=== PATIENT | male | born 1955 | race African-American/Black ===

== ENCOUNTER 2018-07-23 20:43 | Inpatient (IN) | payer MEDICAID ==
[~2018-07-23] VITALS: Ht 185.4 cm; Wt 97.0 kg
[2018-07-23] MEDS ORDERED: LOTENSIN40 MG PO (20:47)
[2018-07-23] MEDS ORDERED: HUMALOG MIX 75/23 ML (20:47)
[2018-07-23] MEDS ORDERED: MAXZIDE 75/501 TAB PO (20:47)
--- NOTE | 2018-07-23 21:28 | NUR ---
NAY CARE PROVIDED TO PT, CLEAN BRIEF, GOWN AND BED LINENS CHANGED. PT TOLERATED WELL.
[2018-07-23 22:06] LABS: APPEARANCE CLEAR (CLEAR); BILIRUBIN NEGATIVE (NEGATIVE); COLOR YELLOW (YELLOW); GLUCOSE NEGATIVE (NEGATIVE); KETONE NEGATIVE (NEGATIVE); NITRITE NEGATIVE (NEGATIVE); PROTEIN NEGATIVE (NEGATIVE); SPECIFIC GRAVITY 1.015 (1.005-1.020); UROBILINOGEN NORMAL (NORMAL)
[2018-07-23 22:07] LABS: BACTERIA FEW /hpf (NONE SEEN); RED CELLS - URINE 0-5 /hpf (0-5); WHITE CELLS - URINE 0-5 /hpf (0-5)
[2018-07-23 22:11] LABS: UDS - AMPHET NEGATIVE QUAL (NEGATIVE); UDS - BARB NEGATIVE QUAL (NEGATIVE); UDS - BENZO NEGATIVE QUAL (NEGATIVE); UDS - COCAINE NEGATIVE QUAL (NEGATIVE); UDS - OPIATE NEGATIVE QUAL (NEGATIVE); UDS - PCP NEGATIVE QUAL (NEGATIVE); UDS - THC NEGATIVE QUAL (NEGATIVE)
--- NOTE | 2018-07-23 22:14 | NUR ---
PT GIVEN A URINAL.
[2018-07-24] VITALS (7 sets, daily range): BP systolic 88–131; BP diastolic 60–77; Ht 185.4 cm; Wt 97.0 kg
--- NOTE | 2018-07-24 00:32 | NUR ---
JONES PLACEMENT ORDERED FOR RETENTION PLACED A 16F JONES. URINE RETURN WITH PINK URINE DUE TO INSERT. PT OUT PUT APPROX 500 CLAMPED JONES. RELEASED AGAIN AFTER 10 MINS ANOTHER 400 CLAMPED AGAIN. WILL ACCURATE MEASURE ONCE DONE DRAINING BLADDER. PT DRANK A SPRITE DIET 240ML AND IS DRINKING ANOTHER. PT HAS NAUSEA. ZOFRAN GIVEN. ORDER OBTAINED FROM ER DR MARADIAGA. 4MG ZOFRAN GIVEN TO RIGHT HAND 20G PIV. PT IS AAO X2 HAS DIFFICULTY WITH RESPONSES. HISTORY OF CVA LEFT SIDE. PT NOW WATCHING TV DENIES ANY NEEDS. NO S/S OF DISTRESS. WILL CPOC
--- NOTE | 2018-07-24 00:51 | NUR ---
TOTAL OUTPUT AFTER JONES PLACEMENT 1270
[2018-07-24 05:43] LABS: BASOPHILS 0.1 % (0-2); EOSINOPHILS 0.4 % (0-7); HEMATOCRIT 35.4 % (42.0-54.0); HEMOGLOBIN 11.9 g/dL (13.5-17.5); IMMATURE GRANULOCYTES 0.4 % (0-5); LYMPHOCYTES 11.8 % (15-50); MCH 33.3 pg (26.0-34.0); MCHC 33.6 g/dL (31.0-37.0); MCV 99.2 fL (80.0-100.0); MEAN PLATELET VOLUME 9.7 fL (7.4-10.4); MONOCYTES 6.7 % (2-11); NEUTROPHILS 80.6 % (40-80); PLATELET COUNT 165 10x3/uL (130-400); RBC 3.57 10x6/uL (4.20-6.10); RDW 14.8 % (11.5-14.5); WBC 16.5 10x3/uL (4.8-10.8)
[2018-07-24 06:12] LABS: ALBUMIN 3.1 g/dL (3.4-5.0); BILIRUBIN - TOTAL 0.62 mg/dL (0.2-1.3); CALCIUM 9.2 mg/dL (8.5-10.1); CARBON DIOXIDE 17.2 mmol/L (21.0-32.0); CREATININE - SERUM 5.5 mg/dL (0.6-1.3); POTASSIUM - SERUM 4.2 mmol/L (3.5-5.1); PROTEIN - SERUM 7.4 g/dL (6.4-8.2)
--- NOTE | 2018-07-24 06:23 | NUR ---
GLUCOSE THIS MORNING IS 117 NO INSULIN NEEDED PER SLIDING SCALE. PT WILL CALL FOR ASSIST WHEN NEEDED. WILL CPOC
--- NOTE | 2018-07-24 06:35 | NUR ---
ATTEMPTED TO OBTAIN PHARMACY PT STATED SIMEON HENDRIX WILL LOOK UP AND ATTEMPT TO FIND PHARMACY IN THAT AREA CALLED THAT. PT NS INFUSING AT 125 TO RIGHT HAND. PT STATED "I GUESS SO" ON THE 3 MEDICATIONS ON THE LIST. UNKNOWN WHAT MEDICATIONS PT TAKES. UNABLE TO VOICE HISTORY. WILL ATTEMPT TO OBTAIN HISTORY FROM THE TRANSFER PAPER IF ABLE. PT WILL CALL FOR ASSIST WILL CPOC
--- NOTE | 2018-07-24 08:15 | NUR ---
PT LYING IN BED. GENERATING PLANT SUPERINTENDENT DRAWING BLOOD. TRIED SPEAKING WITH PT AND HE JUST LOOKED AT ME AND WOULD NOT RESPOND. WILL CONTINUE WITH PLAN OF CARE. BED LOW. CL IN REACH.
--- NOTE | 2018-07-24 08:39 | NUR ---
PT TAKEN FOR CT SCAN VIA BED.
[2018-07-24 09:06] LABS: COMPLEMENT C4 21.1 mg/dL (17.4-52.2)
--- NOTE | 2018-07-24 09:48 | NUR ---
I have reviewed this patient and I concur with the Shift Assessment completed by the Licensed Practical Nurse today this shift.
--- NOTE | 2018-07-24 10:40 | NUR ---
PT WILL TALK BUT VERY SHORT SENTENCES OR WILL ONLY SAY ONE WORD.
[2018-07-24 10:47] LABS: APPEARANCE TURBID (CLEAR); BILIRUBIN NEGATIVE (NEGATIVE); COLOR RED (YELLOW); GLUCOSE NEGATIVE (NEGATIVE); KETONE NEGATIVE (NEGATIVE); NITRITE NEGATIVE (NEGATIVE); PROTEIN 3+ mg/dL (NEGATIVE); SPECIFIC GRAVITY 1.015 (1.005-1.020); UDS - AMPHET NEGATIVE QUAL (NEGATIVE); UDS - BARB NEGATIVE QUAL (NEGATIVE); UDS - BENZO NEGATIVE QUAL (NEGATIVE); UDS - COCAINE NEGATIVE QUAL (NEGATIVE); UDS - OPIATE NEGATIVE QUAL (NEGATIVE); UDS - PCP NEGATIVE QUAL (NEGATIVE); UDS - THC NEGATIVE QUAL (NEGATIVE); UROBILINOGEN NORMAL (NORMAL)
[2018-07-24 10:49] LABS: CREATININE - URINE 50.1 mg/dL (30-125)
[2018-07-24 10:51] LABS: BACTERIA FEW /hpf (NONE SEEN); EPITHELIAL CELLS 0-5 /hpf (0-5); RED CELLS - URINE >50 /hpf (0-5)
[2018-07-24 11:01] LABS: ERYTHROCYTE SEDIMENTATION RATE 35 mm/hr (0-20)
[2018-07-24 11:20] LABS: PRO/CRE RATIO URINE 22.6 mg/g; PROTEIN - URINE 1130.9 mg/dL (0.0-11.9)
[2018-07-24] MEDS ORDERED: LEVOTHYROXINE100 MCG PO (14:04)
--- NOTE | 2018-07-24 15:24 | NUR ---
PT'S SISTER MONIE CALLED TO CHECK ON PT AND STATES SHE LIVES IN [place] BUT SHE IS THE ONE WHO NEEDS TO BE NOTIFIED. MONIE TANJA [phone].
--- NOTE | 2018-07-24 19:22 | NUR ---
PT ASLEEP, RESP EVEN AND UNLABORED. NS INFUSING AT 125 TO RIGHT HAND ORDERED. JONES NOTED WITH BLOODY URINE. NAME AND DATE PLACED ON BOARD. PT WILL CALL FOR ASSIST WHEN NEEDED. WILL CPOC
--- NOTE | 2018-07-24 21:00 | NUR ---
PT FSBS IS 119 NO INSULIN NEEDED. SNACK PROVIDED. PT DENIES ANY NEEDS. WILL NOT COMMUNITCATE. ONLY SPEAKS AT TIMES. PT APPEARS TO BE AAO, UNKNOWN OF ACTUAL ORIENTATION. PT SPEAKS IN SHORT NOAH OF WORDS. HISTORY OF CVA, RIGHT SIDED WEAKNESS. JONES HAS BLOODY URINE NOTED. NO S/S OF DISTRESS. DENIES ANY NEEDS. NS INFUSING AT 125 TO RIGHT HAND. WILL CPOC
[2018-07-25 04:00] VITALS: BP 100/74
--- NOTE | 2018-07-25 06:34 | NUR ---
NOURISHMENT GIVEN. NS INFUSING AT 125 ORDERED. PT DENIES ANY NEEDS. WILL CPOC
[2018-07-25 09:24] VITALS: BP 104/65
[2018-07-25 10:16] LABS: ANION GAP 16.4 mmol/L (8-16); CALCIUM 7.9 mg/dL (8.5-10.1)
[2018-07-25 10:22] LABS: CREATININE - SERUM 3.6 mg/dL (0.6-1.3); POTASSIUM - SERUM 3.4 mmol/L (3.5-5.1)
[2018-07-25 12:16] LABS: HEPATITIS C ANTIBODY <0.1 (0.0-0.9)
[2018-07-25 12:32] VITALS: BP 104/69
[2018-07-25 13:15] LABS: ANA REFLEX - DIRECT Negative (Negative)
--- NOTE | 2018-07-25 13:22 | NUR ---
I have reviewed this patient and I concur with the Shift Assessment completed by the Licensed Practical Nurse today this shift.
[2018-07-25 16:05] VITALS: BP 124/70
[2018-07-25 16:10] LABS: UPE RAND - ALBUMIN 51.2 % (()); UPE RAND - ALPHA 1 GLOBULIN 3.6 % (()); UPE RAND - ALPHA 2 GLOBULIN 9.8 % (()); UPE RAND - BETA GLOBULIN 20.4 % (())
[2018-07-25 17:09] LABS: SPE - A/G RATIO 0.9 (0.7-1.7); SPE - ALBUMIN 3.3 g/dL (2.9-4.4); SPE - ALPHA-1 GLOBULIN 0.2 g/dL (0.0-0.4); SPE - ALPHA-2 GLOBULIN 0.6 g/dL (0.4-1.0); SPE - BETA GLOBULIN 1.1 g/dL (0.7-1.3); SPE - GAMMA GLOBULIN 1.6 g/dL (0.4-1.8); SPE - M-SPIKE Not Observed g/dL (Not Observed); SPE - TOTAL PROTEIN 6.9 g/dL (6.0-8.5)
--- NOTE | 2018-07-25 19:22 | NUR ---
PT ASLEEP. AROUSES TO NURSE WALKING INTO ROOM. NAME AND DATE PLACED ON BOARD. PT DENIES ANY NEEDS. NOURISHMENT PROVIDED. PT HAS NS INFUSING 125 ORDERED. PT BEDLOW AND CALL LIGHT IN REACH. NAME AND DATE PLACED ON BOARD. PT WILL CALL FOR ASSIST WHEN NEEDED. WILL CPOC
[2018-07-25 20:00] VITALS: BP 111/73
[2018-07-25 23:56] VITALS: BP 113/77
[2018-07-26 00:16] VITALS: BP 105/74
[2018-07-26 04:25] VITALS: BP 118/67
[2018-07-26 04:57] LABS: BASOPHILS 0.2 % (0-2); EOSINOPHILS 2.4 % (0-7); HEMATOCRIT 30.9 % (42.0-54.0); HEMOGLOBIN 10.2 g/dL (13.5-17.5); IMMATURE GRANULOCYTES 0.4 % (0-5); LYMPHOCYTES 14.3 % (15-50); MCH 32.6 pg (26.0-34.0); MCV 98.7 fL (80.0-100.0); MEAN PLATELET VOLUME 9.9 fL (7.4-10.4); MONOCYTES 9.5 % (2-11); NEUTROPHILS 73.2 % (40-80); PLATELET COUNT 178 10x3/uL (130-400); RBC 3.13 10x6/uL (4.20-6.10); RDW 14.7 % (11.5-14.5); WBC 14.7 10x3/uL (4.8-10.8)
[2018-07-26 05:30] LABS: ANION GAP 17.6 mmol/L (8-16); CALCIUM 7.8 mg/dL (8.5-10.1); CARBON DIOXIDE 20.7 mmol/L (21.0-32.0); CREATININE - SERUM 2.7 mg/dL (0.6-1.3); POTASSIUM - SERUM 3.3 mmol/L (3.5-5.1)
--- NOTE | 2018-07-26 06:21 | NUR ---
PT INCONT A MODERATE AMOUNT OF STOOL. CLEANED AND REPOSITIONED. NS INFUSING AT 125 TO RIGHT HAND. PT FSBS IS 123 NO INSULIN NEEDED. PT DENIES ANY NEEDS. WILL CPOC
[2018-07-26 07:49] VITALS: BP 111/75
[2018-07-26 12:16] VITALS: BP 109/69
--- NOTE | 2018-07-26 14:05 | NUR ---
I have reviewed this patient and I concur with the Shift Assessment completed by the Licensed Practical Nurse today this shift.
[2018-07-26 15:38] VITALS: BP 119/73
--- NOTE | 2018-07-26 18:46 | NUR ---
LYING QUIETLY. NO NEEDS VOICED. WILL MONITOR
--- NOTE | 2018-07-26 19:43 | NUR ---
RECEIVED REPORT, WILL ASSUME CARE OF PT, ASKING FOR FOOD, PROVIDE A SANDWICH AND A DRINK, BED IS LOW, SRX2, CALL LIGHT IN REACH, WILL CONTINUE PLAN OF CARE
[2018-07-27] VITALS: BP 115/76
--- NOTE | 2018-07-27 02:01 | NUR ---
I have reviewed this patient and I concur with the Shift Assessment completed by the Licensed Practical Nurse today this shift.
--- NOTE | 2018-07-27 02:03 | NUR ---
COLLECT UA, GAVE TO SUPPORT MANAGER
[2018-07-27 02:27] LABS: APPEARANCE CLOUDY (CLEAR); BILIRUBIN NEGATIVE (NEGATIVE); COLOR STRAW (YELLOW); GLUCOSE NEGATIVE (NEGATIVE); KETONE NEGATIVE (NEGATIVE); NITRITE NEGATIVE (NEGATIVE); PROTEIN 1+ mg/dL (NEGATIVE); UROBILINOGEN NORMAL (NORMAL)
[2018-07-27 02:28] LABS: BACTERIA FEW /hpf (NONE SEEN); EPITHELIAL CELLS RARE /hpf (0-5); RED CELLS - URINE >50 /hpf (0-5); WHITE CELLS - URINE 0-5 /hpf (0-5)
[2018-07-27 04:00] VITALS: BP 121/79
[2018-07-27 04:58] LABS: BASOPHILS 0.3 % (0-2); EOSINOPHILS 3.3 % (0-7); HEMATOCRIT 29.8 % (42.0-54.0); HEMOGLOBIN 10.1 g/dL (13.5-17.5); IMMATURE GRANULOCYTES 0.5 % (0-5); LYMPHOCYTES 18.8 % (15-50); MCH 33.2 pg (26.0-34.0); MCHC 33.9 g/dL (31.0-37.0); MEAN PLATELET VOLUME 11.4 fL (7.4-10.4); MONOCYTES 8.8 % (2-11); NEUTROPHILS 68.3 % (40-80); PLATELET COUNT 167 10x3/uL (130-400); RBC 3.04 10x6/uL (4.20-6.10); RDW 14.8 % (11.5-14.5); WBC 15.3 10x3/uL (4.8-10.8)
--- NOTE | 2018-07-27 05:11 | NUR ---
PT PULL IV OUT, IVAN RN RESITED 22G-RFA
--- NOTE | 2018-07-27 07:45 | NUR ---
ASSESSMENT COMPLETED. AWAKE AND ALERT. PT HAS EXPRESIVE APHASIA. NO TELEMERTY. JONES CATH TO GRAVITY BAG, PATENT IV TO RIGHT FOREARM. NO NEEDS NOTED. CALL LIGHT IN REACH WITH SR UP
[2018-07-27 08:20] VITALS: BP 120/75
[2018-07-27 12:10] VITALS: BP 126/72
--- NOTE | 2018-07-27 14:42 | NUR ---
I have reviewed this patient and I concur with the Shift Assessment completed by the Licensed Practical Nurse today this shift.
[2018-07-27 14:52] VITALS: BP 132/68
--- NOTE | 2018-07-27 19:20 | NUR ---
RECEIVED REPORT, WILL ASSUME CARE OF PT, PT IS SLEEPING, BED IS LOW, SRX2, CALL LIGHT IN REACH, WILL CONTINUE PLAN OF CARE
[2018-07-27 20:30] VITALS: BP 90/60
[2018-07-28 00:54] VITALS: BP 96/60
[2018-07-28 05:41] VITALS: BP 114/78
[2018-07-28 06:48] LABS: BASOPHILS 0.2 % (0-2); EOSINOPHILS 3.1 % (0-7); HEMATOCRIT 29.6 % (42.0-54.0); HEMOGLOBIN 9.7 g/dL (13.5-17.5); IMMATURE GRANULOCYTES 0.5 % (0-5); MCH 32.8 pg (26.0-34.0); MCHC 32.8 g/dL (31.0-37.0); MEAN PLATELET VOLUME 9.7 fL (7.4-10.4); MONOCYTES 8.6 % (2-11); NEUTROPHILS 71.6 % (40-80); PLATELET COUNT 198 10x3/uL (130-400); RBC 2.96 10x6/uL (4.20-6.10); RDW 14.6 % (11.5-14.5); WBC 15.6 10x3/uL (4.8-10.8)
[2018-07-28 07:07] LABS: ANION GAP 15.7 mmol/L (8-16); CARBON DIOXIDE 19.8 mmol/L (21.0-32.0); CREATININE - SERUM 1.9 mg/dL (0.6-1.3); PHOSPHOROUS 1.7 mg/dL (2.5-4.9); POTASSIUM - SERUM 3.5 mmol/L (3.5-5.1)
[2018-07-28 07:18] LABS: CALCIUM 6.9 mg/dL (8.5-10.1)
[2018-07-28 08:18] VITALS: BP 117/80
[2018-07-28 09:08] LABS: ANTI-GLOMERULAR BASMENT MEMBRN 3 units (0-20)
--- NOTE | 2018-07-28 09:38 | NUR ---
ASSESSMENT DONE. DENIES NEEDS
--- NOTE | 2018-07-28 10:39 | NUR ---
I have reviewed this patient and I concur with the Shift Assessment completed by the Licensed Practical Nurse today this shift.
[2018-07-28 13:08] VITALS: BP 105/71
--- NOTE | 2018-07-28 19:30 | NUR ---
RECEIVED REPORT, WILL ASSUME CARE OF PT, DENIES ANY NEEDS AT THIS TIME, BED IS LOW, SRX2, CALL LIGHT IN REACH, WILL CONTINUE PLAN OF CARE
--- NOTE | 2018-07-28 21:00 | NUR ---
[id number] COVERAGE NEEDED AT THIS TIME
[2018-07-28 21:33] VITALS: BP 96/58
[2018-07-29] VITALS (7 sets, daily range): BP systolic 103–110; BP diastolic 61–70
[2018-07-29 05:25] LABS: BASOPHILS 0.3 % (0-2); EOSINOPHILS 2.8 % (0-7); HEMATOCRIT 29.2 % (42.0-54.0); HEMOGLOBIN 9.2 g/dL (13.5-17.5); IMMATURE GRANULOCYTES 0.5 % (0-5); LYMPHOCYTES 19.1 % (15-50); MCH 32.1 pg (26.0-34.0); MCHC 31.5 g/dL (31.0-37.0); MCV 101.7 fL (80.0-100.0); MEAN PLATELET VOLUME 9.4 fL (7.4-10.4); MONOCYTES 8.6 % (2-11); NEUTROPHILS 68.7 % (40-80); PLATELET COUNT 230 10x3/uL (130-400); RBC 2.87 10x6/uL (4.20-6.10); RDW 14.7 % (11.5-14.5); WBC 14.8 10x3/uL (4.8-10.8)
--- NOTE | 2018-07-29 05:28 | NUR ---
I have reviewed this patient and I concur with the Shift Assessment completed by the Licensed Practical Nurse today this shift.
[2018-07-29 06:07] LABS: CARBON DIOXIDE 21.7 mmol/L (21.0-32.0); CREATININE - SERUM 1.9 mg/dL (0.6-1.3); POTASSIUM - SERUM 3.6 mmol/L (3.5-5.1)
[2018-07-29 06:53] LABS: ANION GAP 12.9 mmol/L (8-16)
[2018-07-29 06:54] LABS: CALCIUM 6.6 mg/dL (8.5-10.1)
--- NOTE | 2018-07-29 11:18 | NUR ---
24 HOUR URINE COLLECTED AND SENT TO THE LAB.
[2018-07-29 12:39] LABS: CREATININE - URINE 37.9 mg/dL (30-125); PRO/CRE RATIO URINE 2.9 mg/g; PROTEIN - URINE 109.9 mg/dL (0.0-11.9)
--- NOTE | 2018-07-29 12:53 | NUR ---
Nutrition follow up: Pt is sleeping now Renal ADA diet with 61% average po intake Last BM noted 07/26 BG 150,101 today Weight 213lb-informed nursing of weight increased Noted possible d/c tomorrow RD following
--- NOTE | 2018-07-29 13:47 | NUR ---
I have reviewed this patient and I concur with the Shift Assessment completed by the Licensed Practical Nurse today this shift.
[2018-07-29 17:10] LABS: ANCA - ANTIMYELOPEROXIDASE <9.0 U/mL (0.0-9.0); ANCA - ANTIPROTEINASE 3 <3.5 U/mL (0.0-3.5); ANCA - ATYPICAL <1:20 titer (Neg:<1:20); ANCA - CYTOPLASMIC <1:20 titer (Neg:<1:20); ANCA - PERINUCLEAR <1:20 titer (Neg:<1:20)
--- NOTE | 2018-07-29 19:20 | NUR ---
PT ASLEEP. WILL CPOC
--- NOTE | 2018-07-29 20:19 | NUR ---
PT RESTING IN BED. NAME AND DATE PLACED ON BOARD. PT ASKED FOR A SANDWICH AND A DIET COKE. PT RECEIVED. NS WITH KCL RUNNING ORDERED TO RIGHT ARM. PT WILL CALL FOR ASSIST WHEN NEEDED. WILL CPOC
--- NOTE | 2018-07-30 02:20 | NUR ---
PT RECEIVED A BEDBATH AND JONES CARE. NO S/S OF DISTRESS. BEDLOW AND CALL LIGHT IN REACH. WILL CPOC
[2018-07-30 04:31] VITALS: BP 114/64
[2018-07-30 06:55] LABS: BASOPHILS 0.2 % (0-2); EOSINOPHILS 2.3 % (0-7); HEMATOCRIT 29.4 % (42.0-54.0); HEMOGLOBIN 9.4 g/dL (13.5-17.5); IMMATURE GRANULOCYTES 0.3 % (0-5); LYMPHOCYTES 20.6 % (15-50); MCH 32.2 pg (26.0-34.0); MCV 100.7 fL (80.0-100.0); MEAN PLATELET VOLUME 9.4 fL (7.4-10.4); NEUTROPHILS 67.6 % (40-80); PLATELET COUNT 225 10x3/uL (130-400); RBC 2.92 10x6/uL (4.20-6.10); RDW 14.9 % (11.5-14.5)
[2018-07-30 07:24] LABS: CARBON DIOXIDE 19.4 mmol/L (21.0-32.0); PHOSPHOROUS 2.2 mg/dL (2.5-4.9); POTASSIUM - SERUM 3.4 mmol/L (3.5-5.1)
[2018-07-30 07:52] LABS: CREATININE - SERUM 1.4 mg/dL (0.6-1.3)
[2018-07-30 07:53] LABS: CALCIUM 6.2 mg/dL (8.5-10.1)
[2018-07-30] MEDS ORDERED: LEVOFLOXACIN500 MG PO (07:54)
[2018-07-30 09:45] VITALS: BP 105/74
--- NOTE | 2018-07-30 12:00 | NUR ---
CALLED PTS SISTER AND SHE STATES SHE WILL CALL PTS SON TO COME GRAB HIM FOR TRANSPORTATION. PT VOICED THANKS. NO CURRENT NEEDS. WILL CTM.
--- NOTE | 2018-07-30 15:00 | NUR ---
D/C PTS R.FA PIV WITH CATHETER TIP FULLY INTACT. D/C JONES CATHETER WITH TIP FULLY INTACT. WILL MONITER FOR ANY RETENTION. DISCHARGE TEACHING PROVIDED AND PT VERBALIZED UNDERSTANDING HOWEVER IS VERY AGITATED AND WILL NOT SIGN HIS PAPERS HE ATTEMPTED WITH HIS L.ARM AND THREW HIS PENCIL. WILL REVIEW WITH FAMILY WHEN THEY COME TO PICK HIM UP FOR TRANSPORTATION. NO CURRENT NEEDS AT THIS TIME. WILL CTM.
--- NOTE | 2018-07-30 16:56 | MORECARE ---
CASE MANAGEMENT DISCHARGE SUMMARY PATIENT: SHIRA PUENTES UNIT: [id number] ADM DATE: 07/23/18 AGE: 62 : 59 SEX: M ROOM/BED: D.2124 AUTHOR: AMBERLYDOC PHYSICIAN: REFERRING PHYSICIAN: KAVON PRASAD MD DATE OF SERVICE: 07/30/18 Discharge Plan Patient Name: SHIRA PUENTES Facility: [facility]:[place] : 1955 Planned Disposition: Home Anticipated Discharge Date: 07/30/18 Discharge Date: Expected LOS: 7 Initial Reviewer: [email or web address] Initial Review Date: 07/30/2018 Generated: 07/30/18 5:56 pm Comments DCP- Discharge Planning Updated by [id number]: Dewey Gilman on 07/30/18 3:[address] Patient Name: SHIRA PUENTES Encounter No: [id number] : 1955 Primary Insurance: MEDICAID [place] Anticipated DC Date: 07-30-2018 Planned Disposition: Home DISCHARGE PLANNING NOTE: CM MET WITH PT IN ROOM TO DISCUSS DISCHARGE PLANNING AND NEEDS. PT REPORTS LIVING AT HOME INDEPENDENTLY WITH HIS BROTHER. PT HAS A CANE WITH NO MEDICAL EQUIPMENT PROVIDER AND NO OUTSIDE SERVICES ASSISTING IN THE HOME. CM DISCUSSED AVAILABILITY OF HOME HEALTH, REHAB SERVICES AND MEDICAL EQUIPMENT. PT DENIES DISCHARGE NEEDS, REPORTS HIS FAMILY IS ON THE WAY AND WILL PICK HIM UP FOR DISCHARGE HOME TODAY. CM CALLED [facility] AND [facility] IN [place], PT IS NOT ACTIVE WITH ANY OF THEM. PT ALSO DENIES HAVING OUTPATIENT DIALYSIS SERVICES. Dewey Gilman, GUERRERO ACOSTA DCPIA - Discharge Planning Initial Assessment Updated by [id number]: Dewey Gilman on 07/30/18 4:51 pm * Is the patient Alert and Oriented? Yes * How many steps to enter\exit or inside your home? NONE * PCP DR. PLAZA * Pharmacy [facility] * Preadmission Environment Home with Family * ADLs Independent * Equipment Cane * Other Equipment NO MEDICAL EQUIPMENT PROVIDER PREFERENCE * List name and contact numbers for known caregivers / representatives who currently or will assist patient after discharge: MONIE AGRAWAL, SISTER, * Verbal permission to speak to the caregivers and representatives has been obtained from the patient. N/A * Community resources currently utilized None * Please name any agencies selected above. NONE * Additional services required to return to the preadmission environment? No * Can the patient safely return to the preadmission environment? Yes * Has this patient been hospitalized within the prior 30 days at any hospital? No Patient Name: SHIRA PUENTES Page [id number] at 1656 All edits/amendments must be made on the electronic document DICTATION DATE: 07/30/181655 CHARGE RN: OSEI 07/30/181655 RPT#: [id number] DC DATE: STATUS: ADM IN [facility] [address] [place] [address] END OF REPORT
--- NOTE | 2018-07-30 18:41 | NUR ---
ATTEMPTED TO CALL SISTER THE EMERGENCY CONTACT AGAIN AND NO ANSWER. NOTIFIED WASH OIL PUMP OPERATOR OF ISSUE. WILL CTM.
--- NOTE | 2018-07-30 19:00 | NUR ---
REPORT RECEIVED. DISCHARGE COMPLETE JUST WAITING ON FAMILY. SISTER MONIE CALLED AND STATED BROTHER IS ON HIS WAY FROM [place]. REPORTED TO PT. PT INCONT A LARGE AMOUNT OF BM, WILL CPOC
--- NOTE | 2018-07-30 21:58 | NUR ---
WAITING ON FAMILY. PT REFUSED TO HAVE FSBS THIS EVENING. PT RESTING IN BED. NO S/S OF DISTRESS. GOT PT INTO CHAIR AND CLEANED UP. CHANGED BREIF. X2 ASSIST BACK TO BED. PT WILL CALL FOR ASSIST WHEN NEEDED. WILL CPOC
[2018-07-31] VITALS: BP 112/83
--- NOTE | 2018-07-31 00:16 | NUR ---
CALLED MONIE THE SISTER REGARDING THE BROTHER STILL NOT ARRIVING. SHE STATED SHE WAS UNDER THE UNDERSTANDING THAT THE BROTHER HAD CAME AND THEY WHERE HOME. MONIE STATED SHE WILL CALL THE DAUGHTER FIRST THING THIS MORNING AND IF THE DAUGHTER IS UNABLE TO COME THAN MONIE STATED SHE WILL COME GET HIM HER SELF
[2018-07-31 05:47] VITALS: BP 109/69
--- NOTE | 2018-07-31 07:27 | NUR ---
PT REFUSES FSBS. WAITING FOR FAMILY TO ARRIVE.
--- NOTE | 2018-07-31 07:45 | NUR ---
ROUNDING DONE WITH PATIENT LAYING ON RIGHT SIDE, AROUSES EASILY. PATIENT DENIES NEEDS AT THIS TIME. AWAITING FAMILY FOR RIDE HOME. WILL MONITOR. PASSING FLATUS. HAS DEPENDS ON.
--- NOTE | 2018-07-31 07:55 | MORECARE ---
CASE MANAGEMENT DISCHARGE SUMMARY PATIENT: SHIRA PUENTES UNIT: [id number] ADM DATE: 07/23/18 AGE: 62 : 59 SEX: M ROOM/BED: D.2124 AUTHOR: AMBERLYDOC PHYSICIAN: REFERRING PHYSICIAN: KAVON PRASAD MD DATE OF SERVICE: 07/31/18 Discharge Plan Patient Name: SHIRA PUENTES Facility: [facility]:[place] : 1955 Planned Disposition: Home Anticipated Discharge Date: 07/30/18 Discharge Date: Expected LOS: 7 Initial Reviewer: [email or web address] Initial Review Date: 07/30/2018 Generated: 07/31/18 8:55 am Comments DCP- Discharge Planning Updated by [email or web address]: Dewey Gilman on 07/30/18 3:[address] Patient Name: SHIRA PUENTES Encounter No: [id number] : 1955 Primary Insurance: MEDICAID [place] Anticipated DC Date: 07-30-2018 Planned Disposition: Home DISCHARGE PLANNING NOTE: CM MET WITH PT IN ROOM TO DISCUSS DISCHARGE PLANNING AND NEEDS. PT REPORTS LIVING AT HOME INDEPENDENTLY WITH HIS BROTHER. PT HAS A CANE WITH NO MEDICAL EQUIPMENT PROVIDER AND NO OUTSIDE SERVICES ASSISTING IN THE HOME. CM DISCUSSED AVAILABILITY OF HOME HEALTH, REHAB SERVICES AND MEDICAL EQUIPMENT. PT DENIES DISCHARGE NEEDS, REPORTS HIS FAMILY IS ON THE WAY AND WILL PICK HIM UP FOR DISCHARGE HOME TODAY. CM CALLED [facility] AND [facility] IN [place], PT IS NOT ACTIVE WITH ANY OF THEM. PT ALSO DENIES HAVING OUTPATIENT DIALYSIS SERVICES. Dewey Gilman, CASE KARLA DCPIA - Discharge Planning Initial Assessment Updated by [email or web address]: Dewey Gilman on 07/30/18 4:51 pm * Is the patient Alert and Oriented? Yes * How many steps to enter\exit or inside your home? NONE * PCP DR. PLAZA * Pharmacy [facility] * Preadmission Environment Home with Family * ADLs Independent * Equipment Cane * Other Equipment NO MEDICAL EQUIPMENT PROVIDER PREFERENCE * List name and contact numbers for known caregivers / representatives who currently or will assist patient after discharge: MONIE AGRAWAL, SISTER, * Verbal permission to speak to the caregivers and representatives has been obtained from the patient. N/A * Community resources currently utilized None * Please name any agencies selected above. NONE * Additional services required to return to the preadmission environment? No * Can the patient safely return to the preadmission environment? Yes * Has this patient been hospitalized within the prior 30 days at any hospital? No Last DP export: 07/30/18 3:56 p Patient Name: SHIRA PUENTES Page [id number] at 0755 All edits/amendments must be made on the electronic document DICTATION DATE: 07/31/18753 TRANSPORTATION PROGRAM DIRECTOR: DM 07/31/18 0754 RPT#: [id number] DC DATE: STATUS: ADM IN [facility] [address] [place] [address] END OF REPORT
--- NOTE | 2018-07-31 08:03 | MORECARE ---
CASE MANAGEMENT DISCHARGE SUMMARY PATIENT: SHIRA PUENTES UNIT: [id number] ADM DATE: 07/23/18 AGE: 62 : 59 SEX: M ROOM/BED: D.9944 AUTHOR: AMBERLY,DOC PHYSICIAN: REFERRING PHYSICIAN: KAVON PRASAD MD DATE OF SERVICE: 07/31/18 Discharge Plan Patient Name: SHIRA PUENTES Facility: [facility]:[place] : 1955 Planned Disposition: Home Anticipated Discharge Date: 07/30/18 Discharge Date: Expected LOS: 7 Initial Reviewer: [email or web address] Initial Review Date: 07/30/2018 Generated: 07/31/18 9:03 am Comments DCP- Discharge Planning Updated by [email or web address]: Dewey Gilman on 07/31/18 6:[address] Patient Name: SHIRA PUENTES Encounter No: [id number] : 1955 Primary Insurance: MEDICAID [place] Anticipated DC Date: 07-30-2018 Planned Disposition: Home DCP follow-up note: CM WAS INFORMED BY NURSE THAT FAMILY DID NOT DEPARTMENT STORE MANAGER PT LAST EVENING THEY SAID THEY WOULD. CM CALLED PT'S SISTER, MONIE AGRAWAL, , LEFT MESSAGE ASKING FOR RETURN CALL. CM WAITING ON FAMILY TO CALL CM. CM TO WORK ON TRANSPORTATION ISSUE SOON POSSIBLE TODAY. Dewey Gilman CASE KARLA DCP- Discharge Planning Updated by [email or web address]: Dewey Gilman on 07/30/18 3:[address] Patient Name: SHIRA PUENTES Encounter No: [id number] : 1955 Primary Insurance: MEDICAID [place] Anticipated DC Date: 07-30-2018 Planned Disposition: Home DISCHARGE PLANNING NOTE: CM MET WITH PT IN ROOM TO DISCUSS DISCHARGE PLANNING AND NEEDS. PT REPORTS LIVING AT HOME INDEPENDENTLY WITH HIS BROTHER. PT HAS A CANE WITH NO MEDICAL EQUIPMENT PROVIDER AND NO OUTSIDE SERVICES ASSISTING IN THE HOME. CM DISCUSSED AVAILABILITY OF HOME HEALTH, REHAB SERVICES AND MEDICAL EQUIPMENT. PT DENIES DISCHARGE NEEDS, REPORTS HIS FAMILY IS ON THE WAY AND WILL PICK HIM UP FOR DISCHARGE HOME TODAY. CM CALLED [facility] AND [facility] IN [place], PT IS NOT ACTIVE WITH ANY OF THEM. PT ALSO DENIES HAVING OUTPATIENT DIALYSIS SERVICES. Dewey Gilman, CASE MANAGEMENT DCPIA - Discharge Planning Initial Assessment Updated by [email or web address]: Dewey Gilman on 07/30/18 4:51 pm * Is the patient Alert and Oriented? Yes * How many steps to enter\exit or inside your home? NONE * PCP DR. PLAZA * Pharmacy [facility] * Preadmission Environment Home with Family * ADLs Independent * Equipment Cane * Other Equipment NO MEDICAL EQUIPMENT PROVIDER PREFERENCE * List name and contact numbers for known caregivers / representatives who currently or will assist patient after discharge: MONIE AGRAWAL, SISTER, * Verbal permission to speak to the caregivers and representatives has been obtained from the patient. N/A * Community resources currently utilized None * Please name any agencies selected above. NONE * Additional services required to return to the preadmission environment? No * Can the patient safely return to the preadmission environment? Yes * Has this patient been hospitalized within the prior 30 days at any hospital? No Last DP export: 07/31/18 6:55 a Patient Name: SHIRA PUENTES Page [id number] at 0803 All edits/amendments must be made on the electronic document DICTATION DATE: 07/31/18801 SOILED LINEN DISTRIBUTOR: OSEI 07/31/18801 RPT#: [id number] DC DATE: STATUS: ADM IN [facility] [address] [place] [address] END OF REPORT
--- NOTE | 2018-07-31 09:40 | MORECARE ---
CASE MANAGEMENT DISCHARGE SUMMARY PATIENT: SHIRA PUENTES UNIT: [id number] ADM DATE: 07/23/18 AGE: 62 : 59 SEX: M ROOM/BED: D.4354 AUTHOR: AMBERLY,DOC PHYSICIAN: REFERRING PHYSICIAN: KAVON PRASAD MD DATE OF SERVICE: 07/31/18 Discharge Plan Patient Name: SHIRA PUENTES Facility: [facility]:[place] : 1955 Planned Disposition: Home Anticipated Discharge Date: 07/31/18 Discharge Date: Expected LOS: 8 Initial Reviewer: [email or web address] Initial Review Date: 07/30/2018 Generated: 07/31/18 10:40 am Comments DCP- Discharge Planning Updated by [email or web address]: Dewey Gilman on 07/31/18 6:[address] Patient Name: SHIRA PUENTES Encounter No: [id number] : 1955 Primary Insurance: MEDICAID [place] Anticipated DC Date: 07-30-2018 Planned Disposition: Home DCP follow-up note: CM WAS INFORMED BY NURSE THAT FAMILY DID NOT OUTPATIENT SERVICES DIRECTOR PT LAST EVENING THEY SAID THEY WOULD. CM CALLED PT'S SISTER, MONIE AGRAWAL, , LEFT MESSAGE ASKING FOR RETURN CALL. CM WAITING ON FAMILY TO CALL CM. CM TO WORK ON TRANSPORTATION ISSUE SOON POSSIBLE TODAY. Dewey iGlman CASE KARLA DCP- Discharge Planning Updated by [id number]: Dewey Gilman on 07/30/18 3:[address] Patient Name: SHIRA PUENTES Encounter No: [id number] : 1955 Primary Insurance: MEDICAID [place] Anticipated DC Date: 07-30-2018 Planned Disposition: Home DISCHARGE PLANNING NOTE: CM MET WITH PT IN ROOM TO DISCUSS DISCHARGE PLANNING AND NEEDS. PT REPORTS LIVING AT HOME INDEPENDENTLY WITH HIS BROTHER. PT HAS A CANE WITH NO MEDICAL EQUIPMENT PROVIDER AND NO OUTSIDE SERVICES ASSISTING IN THE HOME. CM DISCUSSED AVAILABILITY OF HOME HEALTH, REHAB SERVICES AND MEDICAL EQUIPMENT. PT DENIES DISCHARGE NEEDS, REPORTS HIS FAMILY IS ON THE WAY AND WILL PICK HIM UP FOR DISCHARGE HOME TODAY. CM CALLED [facility] AND [facility] IN [place], PT IS NOT ACTIVE WITH ANY OF THEM. PT ALSO DENIES HAVING OUTPATIENT DIALYSIS SERVICES. Dewey Gilman, CASE MANAGEMENT DCPIA - Discharge Planning Initial Assessment Updated by [email or web address]: Dewey Gilman on 07/30/18 4:51 pm * Is the patient Alert and Oriented? Yes * How many steps to enter\exit or inside your home? NONE * PCP DR. PLAZA * Pharmacy [facility] * Preadmission Environment Home with Family * ADLs Independent * Equipment Cane * Other Equipment NO MEDICAL EQUIPMENT PROVIDER PREFERENCE * List name and contact numbers for known caregivers / representatives who currently or will assist patient after discharge: MONIE AGRAWAL, SISTER, * Verbal permission to speak to the caregivers and representatives has been obtained from the patient. N/A * Community resources currently utilized None * Please name any agencies selected above. NONE * Additional services required to return to the preadmission environment? No * Can the patient safely return to the preadmission environment? Yes * Has this patient been hospitalized within the prior 30 days at any hospital? No Last DP export: 07/31/18 7:03 a Patient Name: SHIRA PUENTES Page [phone] Electronically Signed by [facility] [place] on 07/31/18 at 0940 All edits/amendments must be made on the electronic document DICTATION DATE: 07/31/18939 MEAT SPECIALIST: OSEI 07/31/18939 RPT#: [id number] DC DATE: STATUS: ADM IN [facility] [address] [place] [address] END OF REPORT
--- NOTE | 2018-07-31 09:49 | MORECARE ---
CASE MANAGEMENT DISCHARGE SUMMARY PATIENT: SHIRA PUENTES UNIT: [id number] ADM DATE: 07/23/18 AGE: 62 : 59 SEX: M ROOM/BED: D.2124 AUTHOR: AMBERLY,DOC PHYSICIAN: REFERRING PHYSICIAN: KAVON PRASAD MD DATE OF SERVICE: 07/31/18 Discharge Plan Patient Name: SHIRA PUENTES Facility: [facility]:[place] : 1955 Planned Disposition: Home Anticipated Discharge Date: 07/31/18 Discharge Date: Expected LOS: 8 Initial Reviewer: [email or web address] Initial Review Date: 07/30/2018 Generated: 07/31/18 10:48 am Comments DCP- Discharge Planning Updated by [id number]: Dewey Moise on 07/31/18 8:[address] Patient Name: SHIRA PUENTES Encounter No: [id number] : 1955 Primary Insurance: MEDICAID [place] Anticipated DC Date: 07-30-2018 Planned Disposition: Home DCP follow-up note: CM WAS INFORMED BY NURSE THAT FAMILY DID NOT SALES REPRESENTATIVES PT LAST EVENING THEY SAID THEY WOULD. CM CALLED PT'S SISTER, MONIE AGRAWAL, , LEFT MESSAGE ASKING FOR RETURN CALL. CM WAITING ON FAMILY TO CALL CM. CM TO WORK ON TRANSPORTATION ISSUE SOON POSSIBLE TODAY. Dewey Moise, CASE MANAGEMENT Appended by Dewey Moise on 07/31/2018 9:43 CDT: CM SPOKE TO PT'S SISTER, MONIE, WHO ASKED CM TO CALL MEDICA[employer] TRANSPORT AND IF NO ONE WILL SALES REPRESENTATIVES PT, SHE WILL PICK HIM UP AFTER 3:30PM TODAY. CM SPOKE TO PT AND OBTAINED SOCIAL SECURITY NUMBER IT WAS NOT IN REGISTRATION INFORMATION. CM CALLED [employer]ICA[employer] TRANSPORT, , SPOKE TO IRINA AND ARRANGED SALES REPRESENTATIVES AFTER 1000AM THIS ANIKA, CONFIRMATION #[id number]. PT, PT'S SISTER, SOLUTION DESIGNER NURSE AND BEDSIDE NURSE NOTIFIED. MEDICAID BUS TO CALL NURSES STATION WHEN AT FRONT ENTRANCE TO SALES REPRESENTATIVES PT TODAY. DEWEY MOISE, CASE MANAGEMENT DCP- Discharge Planning Updated by [id number]: Dewey Moise on 07/30/18 3:[address] Patient Name: SHIRA PUENTES Encounter No: [id number] : 1955 Primary Insurance: MEDICAID [facility] DC Date: 07-30-2018 Planned Disposition: Home DISCHARGE PLANNING NOTE: CM MET WITH PT IN ROOM TO DISCUSS DISCHARGE PLANNING AND NEEDS. PT REPORTS LIVING AT HOME INDEPENDENTLY WITH HIS BROTHER. PT HAS A CANE WITH NO MEDICAL EQUIPMENT PROVIDER AND NO OUTSIDE SERVICES ASSISTING IN THE HOME. CM DISCUSSED AVAILABILITY OF HOME HEALTH, REHAB SERVICES AND MEDICAL EQUIPMENT. PT DENIES DISCHARGE NEEDS, REPORTS HIS FAMILY IS ON THE WAY AND WILL PICK HIM UP FOR DISCHARGE HOME TODAY. CM CALLED [facility] AND [facility] IN [place], PT IS NOT ACTIVE WITH ANY OF THEM. PT ALSO DENIES HAVING OUTPATIENT DIALYSIS SERVICES. Dewey Moise, CASE MANAGEMENT DCPIA - Discharge Planning Initial Assessment Updated by [id number]: Dewey Moise on 07/30/18 4:51 pm * Is the patient Alert and Oriented? Yes * How many steps to enter\exit or inside your home? NONE * PCP DR. PLAZA * Pharmacy [facility] * Preadmission Environment Home with Family * ADLs Independent * Equipment Cane * Other Equipment NO MEDICAL EQUIPMENT PROVIDER PREFERENCE * List name and contact numbers for known caregivers / representatives who currently or will assist patient after discharge: MONIE AGRAWAL, SISTER, * Verbal permission to speak to the caregivers and representatives has been obtained from the patient. N/A * Community resources currently utilized None * Please name any agencies selected above. NONE * Additional services required to return to the preadmission environment? No * Can the patient safely return to the preadmission environment? Yes * Has this patient been hospitalized within the prior 30 days at any hospital? No Last DP export: 07/31/18 8:40 a Patient Name: SHIRA PUENTES Page [id number] at 0949 All edits/amendments must be made on the electronic document DICTATION DATE: 07/31/18947 AITCHBONE BREAKER: OSEI 07/31/18947 RPT#: [id number] DC DATE: STATUS: ADM IN [facility] [address] [place] [address] END OF REPORT
--- NOTE | 2018-07-31 13:48 | NUR ---
STILL AWAITING RIDE, DENIES NEEDS AT THIS TIME.
--- NOTE | 2018-07-31 14:55 | NUR ---
CALLED SHAD AT [facility] FOR TRANSPORT. WAS TOLD THAT IT WILL BE APPROX. 45 MIN TO AN HOUR BEFORE PICKUP.
--- NOTE | 2018-07-31 15:12 | NUR ---
CLEANED UP AGAIN FROM INCONT. OF URINE AND STOOL. CLEAN DEPENDS AND GOWN PLACED ON PATIENT. AWAITING LIFENET.
[2018-07-31 15:34] VITALS: BP 128/86
--- NOTE | 2018-07-31 15:36 | MORECARE ---
CASE MANAGEMENT DISCHARGE SUMMARY PATIENT: SHIRA PUENTES UNIT: [id number] ADM DATE: 07/23/18 AGE: 62 : 59 SEX: M ROOM/BED: D.2124 AUTHOR: AMBERLY,DOC PHYSICIAN: REFERRING PHYSICIAN: KAVON PRASAD MD DATE OF SERVICE: 07/31/18 Discharge Plan Patient Name: SHIRA PUENTES Facility: [facility]:[place] : 1955 Planned Disposition: Home Anticipated Discharge Date: 07/31/18 Discharge Date: Expected LOS: 8 Initial Reviewer: [email or web address] Initial Review Date: 07/30/2018 Generated: 07/31/18 4:36 pm Comments DCP- Discharge Planning Updated by [id number]: Dewey Moise on 07/31/18 2:[address] Patient Name: SHIRA PUENTES Encounter No: [id number] : 1955 Primary Insurance: MEDICAID [place] Anticipated DC Date: 07-30-2018 Planned Disposition: Home DCP follow-up note: CM WAS INFORMED BY NURSE THAT FAMILY DID NOT PSYCHOLOGIST COUNSELING PT LAST EVENING THEY SAID THEY WOULD. CM CALLED PT'S SISTER, MONIE AGRAWAL, , LEFT MESSAGE ASKING FOR RETURN CALL. CM WAITING ON FAMILY TO CALL CM. CM TO WORK ON TRANSPORTATION ISSUE SOON POSSIBLE TODAY. Dewey Moise, CASE MANAGEMENT Appended by Dewey Moise on 07/31/2018 9:43 CDT: CM SPOKE TO PT'S SISTER, MONIE, WHO ASKED CM TO CALL MEDICAID TRANSPORT AND IF NO ONE WILL PSYCHOLOGIST COUNSELING PT, SHE WILL PICK HIM UP AFTER 3:30PM TODAY. CM SPOKE TO PT AND OBTAINED SOCIAL SECURITY NUMBER IT WAS NOT IN REGISTRATION INFORMATION. CM CALLED MEDICAID TRANSPORT, , SPOKE TO IRINA AND ARRANGED PSYCHOLOGIST COUNSELING AFTER 1000AM THIS ANIKA, CONFIRMATION #[id number]. PT, PT'S SISTER, GENERAL PASSENGER AGENT NURSE AND BEDSIDE NURSE NOTIFIED. MEDICAID BUS TO CALL NURSES STATION WHEN AT FRONT ENTRANCE TO PSYCHOLOGIST COUNSELING PT TODAY. DEWEY MOISE, CASE MANAGEMENT Appended by Dewey Moise on 07/31/2018 15:30 CDT: BEDSIDE NURSE NOTIFIED CM THAT PT HAS BEEN EVALUATED BY PHYSICAL THERAPY AND IS NOT ABLE TO GET SAFELY ON THE MEDICAID TRANSPORT BUS. BEDSIDE NURSE WAS NOT SURE THAT PT COULD SAFELY GET INTO [facility] FOR 2 HOUR TRANSPORT BACK TO [place]. CM CALLED PT'S SISTER, MONIE, , WHO REPORTED NO OTHER WAY AT THIS TIME TO PSYCHOLOGIST COUNSELING PATIENT FROM [place]. MONIE REPORTS PT'S BROTHER IS STILL AT HOME AND WILL BE THERE WAITING FOR PT'S RETURN. GENERAL PASSENGER AGENT NOTIFIED, CHART REVIEWED. PT SENT HOME VIA AMBULANCE FOR SAFE TRANSPORT HOME. CM CALLED AND CANCELLED MEDICAID TRANSPORTATION, SPOKE TO DIRECTOR EDUCATION MARCOS. CM NOTIFIED PT'S SISTER WHO IS AGREEABLE WITH ARRANGEMENTS. DEWEY MOISE CASE MANAGEMENT DCP- Discharge Planning Updated by [id number]: Dewey Moise on 07/30/18 3:[address] Patient Name: SHIRA PUENTES Encounter No: [id number] : 1955 Primary Insurance: MEDICAID [facility] Date: 07-30-2018 Planned Disposition: Home DISCHARGE PLANNING NOTE: CM MET WITH PT IN ROOM TO DISCUSS DISCHARGE PLANNING AND NEEDS. PT REPORTS LIVING AT HOME INDEPENDENTLY WITH HIS BROTHER. PT HAS A CANE WITH NO MEDICAL EQUIPMENT PROVIDER AND NO OUTSIDE SERVICES ASSISTING IN THE HOME. CM DISCUSSED AVAILABILITY OF HOME HEALTH, REHAB SERVICES AND MEDICAL EQUIPMENT. PT DENIES DISCHARGE NEEDS, REPORTS HIS FAMILY IS ON THE WAY AND WILL PICK HIM UP FOR DISCHARGE HOME TODAY. CM CALLED [facility] IN [place], PT IS NOT ACTIVE WITH ANY OF THEM. PT ALSO DENIES HAVING OUTPATIENT DIALYSIS SERVICES. GUERRERO Jesus DCPIA - Discharge Planning Initial Assessment Updated by [id number]: Dewey Moise on 07/30/18 4:51 pm * Is the patient Alert and Oriented? Yes * How many steps to enter\exit or inside your home? NONE * PCP DR. PLAZA * Pharmacy [facility] * Preadmission Environment Home with Family * ADLs Independent * Equipment Cane * Other Equipment NO MEDICAL EQUIPMENT PROVIDER PREFERENCE * List name and contact numbers for known caregivers / representatives who currently or will assist patient after discharge: MONIE AGRAWAL, SISTER, * Verbal permission to speak to the caregivers and representatives has been obtained from the patient. N/A * Community resources currently utilized None * Please name any agencies selected above. NONE * Additional services required to return to the preadmission environment? No * Can the patient safely return to the preadmission environment? Yes * Has this patient been hospitalized within the prior 30 days at any hospital? No Last DP export: 07/31/18 8:48 a Patient Name: SHIRA PUENTES Page 90263 at 1536 All edits/amendments must be made on the electronic document DICTATION DATE: 07/31/181534 FENDER MECHANIC APPRENTICE: OSEI 07/31/181534 RPT#: [id number] DC DATE: STATUS: ADM IN [facility] [address] [place] [address] END OF REPORT
--- NOTE | 2018-07-31 16:56 | NUR ---
VERBAL AND WRITTEN DISCHARGE INSTRUCTIONS GIVEN TO PATIENT. HE IS UNABLE TO SIGN. [facility] IS HERE FOR DISCHARGE. DISCHARGED HOME VIA STRETCHER.
== END 2018-07-31 17:06 | disposition home or self-care (01) | DRG 683 ==
LOC: EDSEX 20:43 → D.ER 20:43 → D.EDHOLD 22:00 → D.M2 22:00 → D.SDCHOLD 07-30 14:10 → D.M2 07-30 14:18 → D.SDCHOLD 07-30 17:28 → D.M2 07-30 17:35
PROVIDERS: Emergency Medicine; Internal Medicine Nephrology; ADMIT Internal Medicine Nephrology; ATTEND Internal Medicine Nephrology
DX: N17.9 Acute kidney failure, unspecified (principal); N39.0 Urinary tract infection, site not specified; G93.89 Other specified disorders of brain; E11.9 Type 2 diabetes mellitus without complications; I10 Essential (primary) hypertension; F10.10 Alcohol abuse, uncomplicated; Z86.73 Personal history of transient ischemic attack (TIA), and cerebral infarction without residual deficits

== ENCOUNTER 2019-03-03 11:35 | Inpatient (IN) | payer MEDICAID ==
[~2019-03-03] VITALS: Ht 185.4 cm; Wt 122.0 kg
[~2019-03-03 11:35] MED LIST: HUMALOG MIX 75/23 ML; LEVOFLOXACIN500 MG PO; LEVOTHYROXINE100 MCG PO; LOTENSIN40 MG PO; MAXZIDE 75/501 TAB PO
--- NOTE | 2019-03-03 12:00 | NUR ---
PT SENT HERE FROM [facility]. PT STATES HIS GANG TAILER IS Cande CARRION AND HE TOLD HIM TO COME HERE TO BE ADMITTED. PT'S CAREGIVER FROM [facility] STATES "HE HAS RENAL FAILURE AND THEY THINK IT'S HEADED TOWARDS NEEDING DIALYSIS.
[2019-03-03 12:04] LABS: BASOPHILS 0.6 % (0-2); EOSINOPHILS 3.4 % (0-7); HEMATOCRIT 35.7 % (42.0-54.0); HEMOGLOBIN 11.4 g/dL (13.5-17.5); IMMATURE GRANULOCYTES 0.3 % (0-5); LYMPHOCYTES 29.9 % (15-50); MCH 32.2 pg (26.0-34.0); MCHC 31.9 g/dL (31.0-37.0); MCV 100.8 fL (80.0-100.0); MEAN PLATELET VOLUME 9.6 fL (7.4-10.4); MONOCYTES 8.4 % (2-11); NEUTROPHILS 57.4 % (40-80); RBC 3.54 10x6/uL (4.20-6.10); RDW 14.9 % (11.5-14.5); WBC 10.6 10x3/uL (4.8-10.8)
[2019-03-03 12:06] LABS: PLATELET COUNT 272 10x3/uL (130-400)
[2019-03-03 12:07] LABS: ANION GAP 23.3 mmol/L (8-16); CALCIUM 8.3 mg/dL (8.5-10.1); CARBON DIOXIDE 15.3 mmol/L (21.0-32.0); CREATININE - SERUM 7.8 mg/dL (0.6-1.3); POTASSIUM - SERUM 4.6 mmol/L (3.5-5.1)
[2019-03-03 12:16] LABS: ALBUMIN 3.6 g/dL (3.4-5.0); BILIRUBIN - TOTAL 0.36 mg/dL (0.2-1.3); PROTEIN - SERUM 9.2 g/dL (6.4-8.2)
[2019-03-03] MEDS ORDERED: ACEROLA C500 MG PO (12:16)
[2019-03-03] MEDS ORDERED: CYANOCOBAL1000 MCG/4 IM (12:16)
[2019-03-03] MEDS ORDERED: ELIQUIS5 MG PO (12:16)
[2019-03-03] MEDS ORDERED: BAYER CHEWABLE81 MG PO (12:16)
[2019-03-03] MEDS ORDERED: FOLIC ACID1 MG PO (12:17)
[2019-03-03] MEDS ORDERED: VITAMIN D250000 UNIT PO (12:17)
[2019-03-03] MEDS ORDERED: LASIX20 MG PO (12:18)
[2019-03-03] MEDS ORDERED: HUMALOG 30100 UNITS/ SC (12:19)
[2019-03-03] MEDS ORDERED: IMODIUM2 MG PO (12:19)
[2019-03-03] MEDS ORDERED: SYNTHROID50 MCG PO (12:19)
[2019-03-03] MEDS ORDERED: TOPROL XL25 MG PO (12:20)
[2019-03-03] MEDS ORDERED: PROMOD LIQUID P30 M1 PO (12:21)
[2019-03-03] MEDS ORDERED: POTASSIUM40 MEQ/15 PO (12:21)
[2019-03-03] MEDS ORDERED: PHENERGAN25 MG RC (12:21)
[2019-03-03] MEDS ORDERED: SODIUM BICARBO650 MG PO (12:22)
--- NOTE | 2019-03-03 12:45 | NUR ---
PT REFUSING JONES CATHETER STATING "YOU AREN'T PUTTING NO MORE TUBES UP MY RONAL." SYDNI STOREY AND EDP, SHARON, INFORMED.
[2019-03-03 14:15] LABS: APPEARANCE CLOUDY (CLEAR); COLOR YELLOW (YELLOW); GLUCOSE 50 mg/dL (NEGATIVE); NITRITE NEGATIVE (NEGATIVE); PROTEIN 1+ mg/dL (NEGATIVE)
[2019-03-03 14:16] LABS: BACTERIA MANY /hpf (NEGATIVE); BILIRUBIN NEGATIVE (NEGATIVE); EPITHELIAL CELLS OCC /hpf (0-5); KETONE NEGATIVE (NEGATIVE); RED CELLS - URINE 0-5 /hpf (0-5); UROBILINOGEN NORMAL (NORMAL); WHITE CELLS - URINE >50 /hpf (NEGATIVE)
[2019-03-03 15:30] VITALS: BP 146/83
--- NOTE | 2019-03-03 17:18 | NUR ---
RECEIVED PT TO ROOM 2133 VIA STRETCHER, X4 ASSIST TO TRANSFER PT FROM STRETCHER TO BED. ORIENTED PT TO ROOM AND CALL LIGHT. INFORMED PT ABOUT ORDER TO PLACE JONES CATHETER, PT STATED "YOU ARE NOT PUTTING THAT IN MY PENIS."
[2019-03-03 17:45] VITALS: BP 141/78; BMI 26.4
--- NOTE | 2019-03-03 19:20 | NUR ---
EVENING ROUNDS COMPLETE. PT SITTING UP IN BED, NO SIGNS OF DISTRESS. PT DENIES ANY PAIN OR NEEDS AT THIS TIME. CL IN REACH, BED IN LOWEST POSITION.
[2019-03-03 20:00] VITALS: BP 112/62
--- NOTE | 2019-03-03 21:14 | NUR ---
PT IS STILL REFUSING JONES CATH AT THIS TIME.
[2019-03-04] VITALS: BP 113/59
[2019-03-04 04:00] VITALS: BP 119/69
[2019-03-04 05:16] LABS: ALBUMIN 3.4 g/dL (3.4-5.0); ANION GAP 23.9 mmol/L (8-16); BILIRUBIN - TOTAL 0.44 mg/dL (0.2-1.3); CALCIUM 7.9 mg/dL (8.5-10.1); CARBON DIOXIDE 16.3 mmol/L (21.0-32.0); CREATININE - SERUM 7.3 mg/dL (0.6-1.3); POTASSIUM - SERUM 4.2 mmol/L (3.5-5.1); PROTEIN - SERUM 7.9 g/dL (6.4-8.2)
[2019-03-04 06:02] LABS: BASOPHILS 0.4 % (0-2); EOSINOPHILS 3.1 % (0-7); HEMATOCRIT 29.7 % (42.0-54.0); HEMOGLOBIN 9.7 g/dL (13.5-17.5); IMMATURE GRANULOCYTES 0.2 % (0-5); LYMPHOCYTES 23.6 % (15-50); MCH 32.3 pg (26.0-34.0); MCHC 32.7 g/dL (31.0-37.0); MEAN PLATELET VOLUME 9.2 fL (7.4-10.4); MONOCYTES 7.4 % (2-11); NEUTROPHILS 65.3 % (40-80); RDW 14.7 % (11.5-14.5)
[2019-03-04 06:05] LABS: PLATELET COUNT 212 10x3/uL (130-400)
--- NOTE | 2019-03-04 08:21 | NUR ---
GAVE FOLIC ACID ORDERED. PT IN BED, EATING BREAKFAST, DENIES ANY NEEDS AT THIS TIME. CALL LIGHT IN REACH, BEDSIDE RAILS X2, NAD NOTED, WILL CONTINUE TO MONITOR.
[2019-03-04 08:45] VITALS: BP 123/70
--- NOTE | 2019-03-04 09:26 | NUR ---
CALLED DR. HORNE AND INFORMED HIM THAT PT IS STILL REFUSING TO HAVE JONES CATHETER PLACED.
--- NOTE | 2019-03-04 10:30 | NUR ---
CLEANED PT UP FROM INCONT EPISODE, PADS CHANGED AT THIS TIME. PT DENIES ANY NEEDS AT THIS TIME. CALL LIGHT IN REACH,NAD NOTED, WILL CONTINUE TO MONITOR.
[2019-03-04 10:38] LABS: % SATURATION 94 % (15-55); IRON 141 ug/dl (35-150); TOTAL IRON BIND CAPACITY 149 ug/dl (260-445)
[2019-03-04 10:40] LABS: UNSAT IRON BIND CAPACITY 8 ug/dl (150-375)
[2019-03-04 11:02] LABS: FERRITIN 2372 ng/mL (3-244)
--- NOTE | 2019-03-04 11:19 | NUR ---
BLOOD SUGAR OF 118, NO COVERAGE NEEDED PER S/S. PT RESTING COMFORTABLY IN BED, NAD NOTED.
[2019-03-04 12:06] VITALS: BMI 26.3
[2019-03-04 13:04] VITALS: BP 130/76
--- NOTE | 2019-03-04 15:18 | NUR ---
14[place] COU[place] JONES CATHETER PLACED RADHA GARCIA RN.
[2019-03-04 16:02] VITALS: Ht 185.4 cm; Wt 122.0 kg
[2019-03-04 17:44] VITALS: BP 142/82
--- NOTE | 2019-03-04 19:04 | NUR ---
TALKED TO DR. GALICIA ABOUT PT HAVING PAIN AFTER HAVING JONES CATHETER PLACEMENT. PER DR. GALICIA ORDER PYRIDIUM 100MG TID AND IBUPROFEN 800MG Q6PRN.
--- NOTE | 2019-03-04 19:20 | NUR ---
EVENING ROUNDS COMPLETE. PT IN OBVIOUS PAIN LAYING IN BED. PER DR. GALICIA NORBAKARI 7.5 MG Q 4 PO ORDERED AND TO START FIRST DOSE NOW. PT JONES OUTPUT DARK BEAU. PER DR. PRASAD, TO PAGE DR. HORNE AND RELAY THE AMOUNT OF PAIN PT IS IN ALONG WITH THE COLOR AND DRAINAGE OF THE JONES. DR HORNE PAGED.
[2019-03-04 20:00] VITALS: BP 155/75
[2019-03-04 20:14] LABS: HEMATOCRIT 30.8 % (42.0-54.0); HEMOGLOBIN 10.1 g/dL (13.5-17.5)
--- NOTE | 2019-03-04 20:30 | NUR ---
DR. HORNE RETURED CALL. PER DR. HORNE PT IS TO BE NPO AFTER MN AND PLACED ON THE OR SCHEDULE IN AM FOR CYSTOSCOPY AND JONES INSERTION.
[2019-03-05 05:09] VITALS: BP 166/51
[2019-03-05 06:26] LABS: BASOPHILS 0.3 % (0-2); EOSINOPHILS 0.2 % (0-7); HEMATOCRIT 27.3 % (42.0-54.0); HEMOGLOBIN 8.9 g/dL (13.5-17.5); IMMATURE GRANULOCYTES 0.3 % (0-5); LYMPHOCYTES 14.5 % (15-50); MCH 31.7 pg (26.0-34.0); MCHC 32.6 g/dL (31.0-37.0); MCV 97.2 fL (80.0-100.0); MEAN PLATELET VOLUME 9.4 fL (7.4-10.4); MONOCYTES 5.3 % (2-11); NEUTROPHILS 79.4 % (40-80); PLATELET COUNT 220 10x3/uL (130-400); RBC 2.81 10x6/uL (4.20-6.10); RDW 14.7 % (11.5-14.5)
[2019-03-05 06:38] LABS: ANION GAP 20.6 mmol/L (8-16); BILIRUBIN - TOTAL 0.43 mg/dL (0.2-1.3); CALCIUM 7.9 mg/dL (8.5-10.1); CARBON DIOXIDE 19.2 mmol/L (21.0-32.0); CREATININE - SERUM 8.1 mg/dL (0.6-1.3); POTASSIUM - SERUM 3.8 mmol/L (3.5-5.1)
[2019-03-05 06:46] LABS: WBC 11.8 10x3/uL (4.8-10.8)
[2019-03-05 07:13] VITALS: BP 119/71
--- NOTE | 2019-03-05 07:29 | NUR ---
CALLED PATIENT SISTER AND SHE GAVE CONSENT FOR HIM TO HAVE THE PROCEDURE WITH DR HORNE THIS MORNING. TWO NURSES WITNESSED OVER THE PHONE. PAPERS SIGNED. THE DRAINAGE FROM HIS JONES IS STILL BLOODY. HE IS RESPONSIVE AND CONVERSATIONAL, HOWEVER HE DOES NOT KNOW THE DATE AND TIME, OR WHY HE IS HERE.
[2019-03-05 08:41] VITALS: BP 112/63
[2019-03-05 10:10] LABS: SPE - A/G RATIO 0.9 (0.7-1.7); SPE - ALBUMIN 3.9 g/dL (2.9-4.4); SPE - ALPHA-1 GLOBULIN 0.2 g/dL (0.0-0.4); SPE - ALPHA-2 GLOBULIN 0.7 g/dL (0.4-1.0); SPE - BETA GLOBULIN 1.1 g/dL (0.7-1.3); SPE - GAMMA GLOBULIN 2.3 g/dL (0.4-1.8); SPE - M-SPIKE Not Observed g/dL (Not Observed); SPE - TOTAL PROTEIN 8.3 g/dL (6.0-8.5)
--- NOTE | 2019-03-05 11:41 | NUR ---
PATIENT IS IN SURGERY AT THIS TIME.
[2019-03-05 12:40] VITALS: BP 112/62
[2019-03-05 13:04] LABS: HEMOGLOBIN 9.1 g/dL (13.5-17.5)
--- NOTE | 2019-03-05 13:09 | NUR ---
PATIENT IS BACK FROM SURGERY, AND HE DID NOT NEED ANYTHING DONE. THE BLOOD IN THE JONES BAG IS LOOKING MORE CLEAR, ALTHOUGH STILL BLOODY. DR HORNE LEFT THE JONES IN PLACE.
--- NOTE | 2019-03-05 14:00 | NUR ---
OT NOTE: PT PERFORMED BED MOB WITH CGA; REMAINS VERY AGITATED AND ANGRY. RESISTANT TO DO ANY ADLS, BUT WAS AGREEABLE TO WASH FACE WITH WASHCLOTH. REFUSED SIT TO STAND. ASSISTED WITH ROM EXS BUT PT ANGRY THROUGHOUT TMT SESSION. GRISEL TORRES, OTR/L
--- NOTE | 2019-03-05 15:02 | NUR ---
OT NOTE: PT EXHIBITED SELF LIMITING BEHAVIORS. PT COMPLETED BED MOBILITY TASKS WITH CGA. PT COMPLETED EOB SITTING BALANCE AXS WITH SBA. PT COMPLETED LB HYGIENE TASKS WITH MOD A. THANK YOU, FELY PAL
[2019-03-05 15:10] LABS: UPE RAND - ALPHA 1 GLOBULIN 3.9 % (()); UPE RAND - ALPHA 2 GLOBULIN 10.6 % (()); UPE RAND - BETA GLOBULIN 27.9 % (()); UPE RAND - GAMMA GLOBULIN 31.6 % (())
[2019-03-05 16:56] LABS: HEMATOCRIT 26.4 % (42.0-54.0); HEMOGLOBIN 8.6 g/dL (13.5-17.5)
[2019-03-05 17:17] VITALS: BP 109/62
[2019-03-05 19:51] LABS: HEMATOCRIT 26.6 % (42.0-54.0); HEMOGLOBIN 8.6 g/dL (13.5-17.5)
[2019-03-05 20:00] VITALS: BP 107/62
--- NOTE | 2019-03-05 20:00 | NUR ---
EVENING ROUNDS COMPLETE. PT LAYING IN BED. NO SIGNS OF DISTRESS. AAOX3, DISORIENTED TO TIME. PT DENIES ANY PAIN OR NEEDS AT THIS TIME. CL IN REACH, BED IN LOWEST POSITION.
[2019-03-06] VITALS: BP 148/71
[2019-03-06 05:53] LABS: BASOPHILS 0.6 % (0-2); EOSINOPHILS 3.5 % (0-7); IMMATURE GRANULOCYTES 0.3 % (0-5); LYMPHOCYTES 20.2 % (15-50); MCH 31.5 pg (26.0-34.0); MCHC 32.1 g/dL (31.0-37.0); MCV 97.9 fL (80.0-100.0); MEAN PLATELET VOLUME 9.5 fL (7.4-10.4); NEUTROPHILS 63.4 % (40-80); PLATELET COUNT 193 10x3/uL (130-400); RBC 2.86 10x6/uL (4.20-6.10); RDW 14.7 % (11.5-14.5); WBC 11.1 10x3/uL (4.8-10.8)
[2019-03-06 06:24] LABS: ALBUMIN 2.9 g/dL (3.4-5.0); ANION GAP 19.2 mmol/L (8-16); BILIRUBIN - TOTAL 0.53 mg/dL (0.2-1.3); CALCIUM 7.7 mg/dL (8.5-10.1); CARBON DIOXIDE 21.3 mmol/L (21.0-32.0); CREATININE - SERUM 7.6 mg/dL (0.6-1.3); POTASSIUM - SERUM 3.5 mmol/L (3.5-5.1)
--- NOTE | 2019-03-06 06:58 | NUR ---
REPORT RECEIVED. HE IS ALERT TO NAME. RIGHT WRIST IV WITH SODIUM BICARB INFUSING AT 100CC/HR. F/C PATENT WITH BLOODY URINE DRAINING. DENIES ANY CURRENT NEEDS CL IN REACH BED IN LOWEST POSITION AND LOCKED. CAREPLAN REVIEW DONE WITH SAFETY PRECAUTIONS IN PLACE,
[2019-03-06 07:10] LABS: FERRITIN 2495 ng/mL (3-244)
[2019-03-06 07:11] LABS: % SATURATION 85 % (15-55); IRON 120 ug/dl (35-150); TOTAL IRON BIND CAPACITY 141 ug/dl (260-445)
[2019-03-06 07:13] LABS: UNSAT IRON BIND CAPACITY 21 ug/dl (150-375)
[2019-03-06 09:10] VITALS: BP 126/67
[2019-03-06 11:40] VITALS: BP 127/76
[2019-03-06 12:32] LABS: HEMATOCRIT 25.7 % (42.0-54.0); HEMOGLOBIN 8.8 g/dL (13.5-17.5)
--- NOTE | 2019-03-06 13:06 | NUR ---
Nutrition Follow-up: Pt confused. Chart reviewed. Noted 25% of breakfast eaten this AM. Diet: Renal ADA PO intake: 77% avg x 6 meals Wt: 267# Last BM: 03/05 per chart Labs noted: K+ 3.5, Glu 112, Ca 7.7, Alb 2.9 Meds noted: NS @ 75, Reglan, Pepcid -Continue current diet as tolerated. -Offer nutrition supplement with meals. -RD following.
--- NOTE | 2019-03-06 13:48 | MORECARE ---
CASE MANAGEMENT DISCHARGE SUMMARY PATIENT: SHIRA PUENTES UNIT: [id number] ADM DATE: 03/03/19 AGE: 63 : 59 SEX: M ROOM/BED: D.2133 AUTHOR: MEGAN GAMING PHYSICIAN: REFERRING PHYSICIAN: EVA GALICIA MD DATE OF SERVICE: 03/06/19 Discharge Plan Patient Name: SHIRA PUENTES Facility: [facility]:[place] : 1955 Planned Disposition: Nursing Facility [facility] Anticipated Discharge Date: Discharge Date: Expected LOS: Initial Reviewer: [email or web address] Initial Review Date: 03/05/2019 Generated: 03/06/19 2:48 pm Patient Name: SHIRA PUENTES Page 37847 at 1348 All edits/amendments must be made on the electronic document DICTATION DATE: 03/06/19 1348 MARINE ENGINEER CPVEC: OSEI 03/06/19 1348 RPT#: [id number] DC DATE: STATUS: ADM IN [facility] [address] [place] [address] END OF REPORT
--- NOTE | 2019-03-06 13:58 | MORECARE ---
CASE MANAGEMENT DISCHARGE SUMMARY PATIENT: SHIRA PUENTES UNIT: [id number] ADM DATE: 03/03/19 AGE: 63 : 59 SEX: M ROOM/BED: D.2133 AUTHOR: MEGAN GAMING PHYSICIAN: REFERRING PHYSICIAN: EVA GALICIA MD DATE OF SERVICE: 03/06/19 Discharge Plan Patient Name: SHIRA PUENTES [facility] [facility] 1955 Planned Disposition: Nursing Facility [facility] Cert Anticipated Discharge Date: Discharge Date: Expected LOS: Initial Reviewer: [email or web address] Initial Review Date: 03/05/2019 Generated: 03/06/19 2:58 pm DCPIA - Discharge Planning Initial Assessment Updated by [email or web address]: Dewey Gilman on 03/06/19 1:56 pm * Is the patient Alert and Oriented? Yes * How many steps to enter\exit or inside your home? NONE * PCP DR. PLAZA * Pharmacy [facility] * Preadmission Environment Alf Fdc * Facility Name [facility] * ADLs Partial Dependent * Partial ADLs (Assistance needed) Ambulation Bathing Medication Management * Equipment Other * Other Equipment ALL MEDICAL EQUIPMENT PROVIDED BY FACILITY * List name and contact numbers for known caregivers / representatives who currently or will assist patient after discharge: MONIE AGRAWAL, SISTER, [facility], [facility], * Verbal permission to speak to the caregivers and representatives has been obtained from the patient. N/A * Community resources currently utilized None * Please name any agencies selected above. NONE * Additional services required to return to the preadmission environment? No * Can the patient safely return to the preadmission environment? Yes * Has this patient been hospitalized within the prior 30 days at any hospital? No Last DP export: 03/06/19 12:48 Patient Name: SHIRA PUENTES Page 80285 at 1358 All edits/amendments must be made on the electronic document DICTATION DATE: 03/06/19 1358 GERMINATION TESTING MANAGER: OSEI 03/06/19 1358 RPT#: [id number] DC DATE: STATUS: ADM IN [facility] [address] [place] [address] END OF REPORT
--- NOTE | 2019-03-06 14:06 | MORECARE ---
CASE MANAGEMENT DISCHARGE SUMMARY PATIENT: SHIRA PUENTES UNIT: [id number] ADM DATE: 03/03/19 AGE: 63 : 59 SEX: M ROOM/BED: D.2133 AUTHOR: AMBERLY,DOC PHYSICIAN: REFERRING PHYSICIAN: EVA GALICIA MD DATE OF SERVICE: 03/06/19 Discharge Plan Patient Name: SHIRA PUENTES Facility: [facility]:[place] : 1955 Planned Disposition: Nursing Facility [facility] Cert Anticipated Discharge Date: Discharge Date: Expected LOS: Initial Reviewer: [email or web address] Initial Review Date: 03/05/2019 Generated: 03/06/19 3:06 pm Comments DCP- Discharge Planning Updated by [id number]: Dewey Gilman on 03/06/19 12:[address] Patient Name: SHIRA PUENTES Admission Status: ER Accout number: [id number] Admission Date: 03-03-2019 : 1955 Admission Diagnosis: Attending: EVA GALICIA Current LOS: 3 Anticipated DC Date: Planned Disposition: Nursing Facility [facility] Cert Primary Insurance: MEDICAID [place] Discharge Planning Comments: CM MET WITH PT IN ROOM TO DISCUSS DISCHARGE PLANNING AND NEEDS. PT REPORTS LIVING AT [facility] IN THE ASSISTED. PT HAS A CANE ; ALL OTHER MEDICAL EQUIPMENT, IF NEEDED, WOULD BE PROVIDED BY THE ASSISTED. PT STATES HE FEELS SAFE THERE AND WILL GO BACK WHEN DONE HERE. CHOICE SIGNED. CM CALLED [facility], , VERIFIED PT IS IN GROUP HOME [facility]ARE BED AND WILL RETURN AT DISCHARGE. CM FAXED UPDATE TO [facility] AT [phone]. FOR DISCHARGE, FAX DISCHARGE INFORMATION TO [facility] AT [phone]. CALL NURSE REPORT AND REQUEST TRANSPORT AT [phone]. Oven Operator Automatic: Dewey Gilman DCPIA - Discharge Planning Initial Assessment Updated by [id number]: Dewey Gilman on 03/06/19 1:56 pm * Is the patient Alert and Oriented? Yes * How many steps to enter\exit or inside your home? NONE * PCP DR. PLAZA * Pharmacy [facility] * Preadmission Environment Skilled Nursing Fdc * Facility Name [facility] * ADLs Partial Dependent * Partial ADLs (Assistance needed) Ambulation Bathing Medication Management * Equipment Other * Other Equipment ALL MEDICAL EQUIPMENT PROVIDED BY FACILITY * List name and contact numbers for known caregivers / representatives who currently or will assist patient after discharge: MONIE AGRAWAL, SISTER, [facility], ASSISTED, * Verbal permission to speak to the caregivers and representatives has been obtained from the patient. N/A * Community resources currently utilized None * Please name any agencies selected above. NONE * Additional services required to return to the preadmission environment? No * Can the patient safely return to the preadmission environment? Yes * Has this patient been hospitalized within the prior 30 days at any hospital? No External Providers External Provider: [facility] and [facility] Next Contact Date: 03/06/2019 Service Request Date: Service Type: Resolution: Reviewer: Comments: Last DP export: 03/06/19 12:58 Patient Name: SHIRA PUENTES Page 40131 at 1406 All edits/amendments must be made on the electronic document DICTATION DATE: 03/06/19 1406 LATHE TENDER: OSEI 03/06/19 1406 RPT#: [id number] DC DATE: STATUS: ADM IN [facility] [address] [place] [address] END OF REPORT
[2019-03-06 15:48] LABS: HEMATOCRIT 26.6 % (42.0-54.0); HEMOGLOBIN 8.8 g/dL (13.5-17.5)
[2019-03-06 18:05] VITALS: BP 123/59
[2019-03-06 19:43] LABS: HEMATOCRIT 27.1 % (42.0-54.0); HEMOGLOBIN 8.7 g/dL (13.5-17.5)
[2019-03-06 20:00] VITALS: BP 129/66
--- NOTE | 2019-03-06 20:35 | NUR ---
INITIAL ROUNDS COMPLETED AT 1910 HRS. PT WATCHNG TV. NO DISTRESS NOTED. ASSESSMENT COMPLETED AT 1950 HRS. VSS. SR PER CM HR 81. ALERT AND ORIENTED. IV TO R WRIST WITH 1/2NS AT 150CC/HR. IV PATENT. LUNGS DIMINISHED IN BASES BILAT. JONES DRAINING BLOODY URINE. GIRON. PALPABLE PERIPHERAL PULSES. 1+ PEDAL EDEMA NOTED. SCD'S REMOVED AND SKIN INSPECTED. NO BREAKDOWN NOTED. SR UP X2, CALL LIGHT WITHIN REACH.
--- NOTE | 2019-03-06 21:28 | NUR ---
PM MED GIVEN. PT DENIES ANY DISCOMFORT. CALL LIGHT WITHIN REACH.
--- NOTE | 2019-03-06 23:26 | NUR ---
BUPRENEX 0.2MG SIVP GIVEN FOR C/O BLADDER PAIN.
[2019-03-07] VITALS (7 sets, daily range): BP systolic 109–136; BP diastolic 59–74
--- NOTE | 2019-03-07 00:22 | NUR ---
PT RESTING WITH EYES CLOSED. RESP EVEN AND REGULAR. SR UP X2, CALL LIGHT WITHIN REACH.
--- NOTE | 2019-03-07 01:38 | NUR ---
PT RESTING WITH EYES CLOSED. RESP EVEN AND REGULAR. SR UP X2, CALL LIGHT WITHIN REACH.
--- NOTE | 2019-03-07 04:10 | NUR ---
PT RESTING WITH EYES CLOSED. RESP EVEN AND REGULAR. NEW BAG 0.45NS UP WITH NEW TUBING. SR UP X2, CALL LIGHT WITHIN REACH.
[2019-03-07 05:31] LABS: BASOPHILS 0.6 % (0-2); EOSINOPHILS 7.7 % (0-7); HEMATOCRIT 26.1 % (42.0-54.0); HEMOGLOBIN 8.4 g/dL (13.5-17.5); IMMATURE GRANULOCYTES 0.5 % (0-5); LYMPHOCYTES 24.8 % (15-50); MCH 31.9 pg (26.0-34.0); MCHC 32.2 g/dL (31.0-37.0); MCV 99.2 fL (80.0-100.0); MEAN PLATELET VOLUME 9.3 fL (7.4-10.4); NEUTROPHILS 50.4 % (40-80); PLATELET COUNT 186 10x3/uL (130-400); RBC 2.63 10x6/uL (4.20-6.10); RDW 14.8 % (11.5-14.5)
[2019-03-07 06:01] LABS: ALBUMIN 2.7 g/dL (3.4-5.0); ANION GAP 17.2 mmol/L (8-16); BILIRUBIN - TOTAL 0.88 mg/dL (0.2-1.3); CALCIUM 7.7 mg/dL (8.5-10.1); CARBON DIOXIDE 21.2 mmol/L (21.0-32.0); CREATININE - SERUM 7.8 mg/dL (0.6-1.3); POTASSIUM - SERUM 3.4 mmol/L (3.5-5.1); PROTEIN - SERUM 6.5 g/dL (6.4-8.2)
[2019-03-07 06:11] LABS: WBC 8.2 10x3/uL (4.8-10.8)
--- NOTE | 2019-03-07 06:38 | NUR ---
VSS THROUGHOUT NIHGT. SR PER CM. AM FSBS 3.4. KCL 40 MEQ PO GIVEN PER PROTOOCOL. NEEDS MET; WILL CONTINUE TO MONITOR.
--- NOTE | 2019-03-07 07:00 | NUR ---
RECEIVED REPORT. BEDSIDE SHIFT REPORT COMPLETE. ASSUMED CARE OF PATIENT. RESTING WITH EYES CLSOED. RESP EVEN AND UNLABORED. EASILY AROUSED. SR UP FOR SAFETY. SCDs PATENT. NO DISTRESS. IV FLUIDS INFUSING ORDERED.
--- NOTE | 2019-03-07 11:24 | NUR ---
FSBS 108. NO INSULIN PER SLIDING SCALE.
[2019-03-07 11:34] LABS: HEMOGLOBIN 8.1 g/dL (13.5-17.5)
--- NOTE | 2019-03-07 13:25 | NUR ---
MEDICATED FOR PAIN AT THIS TIME. NO DISTRESS.
[2019-03-07 16:46] LABS: HEMATOCRIT 25.1 % (42.0-54.0)
--- NOTE | 2019-03-07 17:13 | NUR ---
FSBS 116. NO INSULIN COVERAGE PER SLIDING SCALE.
--- NOTE | 2019-03-07 18:35 | NUR ---
MEDICATED FOR PAIN AT THIS TIME. NO DISTRESS.
--- NOTE | 2019-03-07 19:10 | NUR ---
BEDSIDE REPORT RECEIVED FROM DAY SHIFT, PT CARE ASSUMED. INTRODUCED SELF AND WROTE NAME ON BOARD. PT SITTING UP IN BED, WATCHING TV, A&A. DENIES ANY NEEDS AT THIS TIME. BED IN LOWEST POSITION, SR X2, CALL LIGHT WITHIN REACH. WILL CONTINUE TO MONITOR.
[2019-03-07 19:46] LABS: HEMATOCRIT 25.6 % (42.0-54.0); HEMOGLOBIN 8.1 g/dL (13.5-17.5)
--- NOTE | 2019-03-07 21:10 | NUR ---
PT C/O PENIAL PAIN OF 7, ON A SCALE OF 0-10. PRN MOTRIN AND NIGHT TIME MEDS ADMINISTERED, PER ORDER. DENIES ANY OTHER NEEDS AT THIS TIME. BED IN LOWEST POSITION, SR X2, CALL LIGHT WITHIN REACH. WILL CONTINUE TO MONITOR.
[2019-03-08] VITALS: BP 110/59
[2019-03-08 04:00] VITALS: BP 127/61
[2019-03-08 05:49] LABS: BASOPHILS 1.1 % (0-2); EOSINOPHILS 10.2 % (0-7); HEMOGLOBIN 7.6 g/dL (13.5-17.5); IMMATURE GRANULOCYTES 0.3 % (0-5); MCH 31.8 pg (26.0-34.0); MCHC 31.7 g/dL (31.0-37.0); MCV 100.4 fL (80.0-100.0); MEAN PLATELET VOLUME 9.4 fL (7.4-10.4); MONOCYTES 17.4 % (2-11); PLATELET COUNT 178 10x3/uL (130-400); RBC 2.39 10x6/uL (4.20-6.10); RDW 14.3 % (11.5-14.5); WBC 6.4 10x3/uL (4.8-10.8)
[2019-03-08 06:15] LABS: ALBUMIN 2.4 g/dL (3.4-5.0); BILIRUBIN - TOTAL 0.96 mg/dL (0.2-1.3); CALCIUM 7.4 mg/dL (8.5-10.1); CARBON DIOXIDE 20.6 mmol/L (21.0-32.0); CREATININE - SERUM 7.6 mg/dL (0.6-1.3); POTASSIUM - SERUM 3.6 mmol/L (3.5-5.1); PROTEIN - SERUM 6.2 g/dL (6.4-8.2)
--- NOTE | 2019-03-08 07:42 | NUR ---
PATIENT IS RESTING ON HIS BACK IN BED. HIS JONES IS IN PLACE AND THE URINE IS YELLOW WITH ONLY A SLIGHT TINT OF BLOOD. EYES CLOSED, DENIES ANY NEEDS AT THIS TIME.
[2019-03-08 09:00] VITALS: BP 115/68
[2019-03-08 12:00] VITALS: BP 120/64
[2019-03-08 12:39] LABS: HEMATOCRIT 25.9 % (42.0-54.0); HEMOGLOBIN 8.2 g/dL (13.5-17.5)
--- NOTE | 2019-03-08 13:42 | NUR ---
SPOKE WITH FAMILY REGARDING THE PATIENT REFUSING THE CYSTOGRAM. DISCUSSED THE FACT THAT PATIENT KIDNEYS ARE NOT DRAINING ALL THE WAY AND THIS COULD HELP THE KIDNEY FUCTION IMPROVE. THE FAMILY UNDERSTANDS THE NEED FOR THIS PROCEDURE AND STATES THAT IT WILL TAKE TIME FOR THEM TO GAIN POA, AND RIGHT NOW THE PATIENT MAKES ALL HIS DECISIONS FOR HIMSELF. FAMILY UNDERSTANDS THAT THE PATIENT NEEDS THE CYSTOGRAM, AND STATE THAT THEY WILL ENCOURAGE HIM TO FOLLOW THE PLAN OF CARE THAT THE RENAL DR IS RECOMMENDING.
--- NOTE | 2019-03-08 14:22 | NUR ---
PATIENTS FAMILY REPORTS THAT THE PATIENT AGREED TO HAVE THE CYSTOGRAM DONE. HIS SISTER STATES THAT SHE WILL CALL AND CHECK IN TOMORROW AND MAKE SURE THAT HE DID NOT CHANGE HIS MIND.
[2019-03-08 16:06] LABS: HEMATOCRIT 25.3 % (42.0-54.0)
[2019-03-08 18:11] VITALS: BP 123/71
[2019-03-08 20:00] VITALS: BP 114/57
[2019-03-08 20:01] LABS: HEMATOCRIT 23.5 % (42.0-54.0)
[2019-03-08 20:06] LABS: HEMOGLOBIN 7.4 g/dL (13.5-17.5)
--- NOTE | 2019-03-08 20:10 | NUR ---
PAGE OUT TO YONY VELA, HEALTH INFORMATION DIRECTOR FOR DR GALICIA, TO REPORT CRITICAL HGB.
--- NOTE | 2019-03-08 20:31 | NUR ---
HS MEDS GIVEN WITH FRESH ICE WATER. BS 111, NO COVERAGE GIVEN PER S/S. PT YELLING OUT IN PAIN, BUPRENEX 0.2 MG GIVEN FOR S/S PAIN.
--- NOTE | 2019-03-08 20:47 | NUR ---
SPOKE WITH YONY HARRIS, INFORMED OF CRITICAL HGB, ORDERS GIVEN TO TRANSFUSE 2 UNITS OF PRBCS IF OK WITH RENALS.
--- NOTE | 2019-03-08 20:54 | NUR ---
SPOKE WITH MANISH PATRICIO APN FOR DR PRASAD, 2 UNITS OF PRBCS OK TO INFUSE PER RENALS.
--- NOTE | 2019-03-08 21:55 | NUR ---
FIRST UNIT OF PRBCs INFUSING, VITALS STABLE.
[2019-03-09] VITALS: BP 114/60
--- NOTE | 2019-03-09 00:58 | NUR ---
RESTING WITH EYES CLOSED, RESPERATIONS EVEN, NO S/S DISTRESS NOTED.
--- NOTE | 2019-03-09 01:01 | NUR ---
FIRST UNIT OF PRBCS FINISHED INFUSING, LINE FLUSING WITH NS. VITALS STABLE, NO S/S ADVERSE REACTION NOTED.
--- NOTE | 2019-03-09 02:34 | NUR ---
SECOND UNIT OF PRBCS INFUSING, VITALS STABLE.
[2019-03-09 04:00] VITALS: BP 107/66
--- NOTE | 2019-03-09 04:00 | NUR ---
I have reviewed this patient and I concur with the Shift Assessment completed by the Licensed Practical Nurse today this shift.
--- NOTE | 2019-03-09 05:41 | NUR ---
BLOOD FINISHED INFUSING, VITALS STABLE, NO S/S ADVERSE REACTION NOTED.
[2019-03-09 06:55] LABS: EOSINOPHILS 7.9 % (0-7); IMMATURE GRANULOCYTES 0.2 % (0-5); LYMPHOCYTES 29.6 % (15-50); MCH 31.3 pg (26.0-34.0); MEAN PLATELET VOLUME 9.1 fL (7.4-10.4); MONOCYTES 11.3 % (2-11); PLATELET COUNT 163 10x3/uL (130-400); RDW 16.5 % (11.5-14.5)
[2019-03-09 07:00] LABS: ANION GAP 17.9 mmol/L (8-16); CALCIUM 7.4 mg/dL (8.5-10.1); CARBON DIOXIDE 20.9 mmol/L (21.0-32.0); CREATININE - SERUM 7.4 mg/dL (0.6-1.3); HEMATOCRIT 29.7 % (42.0-54.0); HEMOGLOBIN 9.5 g/dL (13.5-17.5); POTASSIUM - SERUM 3.8 mmol/L (3.5-5.1); RBC 3.04 10x6/uL (4.20-6.10); WBC 8.4 10x3/uL (4.8-10.8)
[2019-03-09 07:01] LABS: MCV 97.7 fL (80.0-100.0)
--- NOTE | 2019-03-09 07:30 | NUR ---
PT LAYING DOWN. VERY SLOW TO RESPOND AND AT TIMES DOES NOT RESPOND AT ALL. PT IS ALERT AND SEEMS SLIGHTLY DISORIENTED. RR EVEN AND UNLABORED. ASSESSMENT COMPLETE. DENIES NEEDS OR PAIN AT THIS TIME. URINE IS DARK BEAU IN COLOR. BED IN LOWEST POSITION. CALL LIGHT WITHIN REACH. WILL CONTINUE TO MONITOR.
[2019-03-09 11:13] VITALS: BP 136/78
[2019-03-09 12:28] LABS: HEMATOCRIT 31.3 % (42.0-54.0); HEMOGLOBIN 10.1 g/dL (13.5-17.5)
--- NOTE | 2019-03-09 12:34 | NUR ---
I have reviewed this patient and I concur with the Shift Assessment completed by the Licensed Practical Nurse today this shift.
[2019-03-09 14:57] VITALS: BP 120/68
[2019-03-09 16:27] LABS: HEMATOCRIT 32.8 % (42.0-54.0); HEMOGLOBIN 10.5 g/dL (13.5-17.5)
[2019-03-09 17:33] VITALS: BP 136/79
--- NOTE | 2019-03-09 17:55 | NUR ---
OT NOTE: PT COMPLETED FACE/HAND WASHING WITH SET UP. PT COMPLETED POSITIONING WITH SPV . PT COMPLETED UE AROM AX. THANK YOU,FELY PAL
[2019-03-09 20:34] VITALS: BP 106/60
[2019-03-10 01:10] VITALS: BP 124/75
[2019-03-10 05:29] LABS: ANION GAP 17.1 mmol/L (8-16); CALCIUM 7.8 mg/dL (8.5-10.1); CARBON DIOXIDE 20.6 mmol/L (21.0-32.0); CREATININE - SERUM 7.8 mg/dL (0.6-1.3); POTASSIUM - SERUM 3.7 mmol/L (3.5-5.1)
[2019-03-10 05:30] LABS: BASOPHILS 0.3 % (0-2); HEMATOCRIT 29.8 % (42.0-54.0); HEMOGLOBIN 9.4 g/dL (13.5-17.5); IMMATURE GRANULOCYTES 0.4 % (0-5); MCHC 31.5 g/dL (31.0-37.0); MCV 98.3 fL (80.0-100.0); MEAN PLATELET VOLUME 8.9 fL (7.4-10.4); MONOCYTES 14.3 % (2-11); PLATELET COUNT 180 10x3/uL (130-400); RBC 3.03 10x6/uL (4.20-6.10); RDW 16.5 % (11.5-14.5)
[2019-03-10 05:33] LABS: WBC 10.8 10x3/uL (4.8-10.8)
[2019-03-10 05:58] VITALS: BP 132/72
--- NOTE | 2019-03-10 06:01 | NUR ---
I have reviewed this patient and I concur with the Shift Assessment completed by the Licensed Practical Nurse today this shift.
--- NOTE | 2019-03-10 07:35 | NUR ---
PATIENT IS RESTING ON HIS BACK IN BED. DENIES ANY NEEDS AT THIS TIME.
[2019-03-10 09:31] VITALS: BP 131/75
--- NOTE | 2019-03-10 09:47 | MORECARE ---
CASE MANAGEMENT DISCHARGE SUMMARY PATIENT: SHIRA PUENTES UNIT: [id number] ADM DATE: 03/03/19 AGE: 63 : 59 SEX: M ROOM/BED: D.2133 AUTHOR: AMBERLYDOC PHYSICIAN: REFERRING PHYSICIAN: EVA GALICIA MD DATE OF SERVICE: 03/10/19 Discharge Plan Patient Name: SHIRA PUENTES Facility: [facility]:[place] : 1955 Planned Disposition: Nursing Facility [facility] Cert Anticipated Discharge Date: Discharge Date: Expected LOS: Initial Reviewer: [id number] Initial Review Date: 03/05/2019 Generated: 03/10/19 10:46 am Comments DCP- Discharge Planning Updated by [id number]: Dewey Gilman on 03/10/19 8:[address] Patient Name: SHIRA PUENTES Encounter No: [id number] : 1955 Primary Insurance: MED[place]ID [place] Anticipated DC Date: Planned Disposition: Nursing Facility [facility] Cert External Planned Provider: [facility], HALFWAY CARE MEDICAID BED DCP follow-up note: CM FAXED REFERRAL UPDATE TO [facility] AT [phone]. FOR DISCHARGE, FAX DISCHARGE INFORMATION TO [facility] AT [phone]. CALL NURSE REPORT AND REQUEST TRANSPORT AT [phone]. Science Intern: Dewey Gilman DCP- Discharge Planning Updated by [id number]: Dewey Gilman on 03/06/19 12:[address] Patient Name: SHIRA PUENTES Admission Status: ER Accout number: [id number] Admission Date: 03-03-2019 : 1955 Admission Diagnosis: Attending: EVA GALICIA Current LOS: 3 Anticipated DC Date: Planned Disposition: Nursing Facility [facility] Cert Primary Insurance: [place]ID [place] Discharge Planning Comments: CM MET WITH PT IN ROOM TO DISCUSS DISCHARGE PLANNING AND NEEDS. PT REPORTS LIVING AT [facility] IN THE [facility]. PT HAS A CANE ; ALL OTHER MEDICAL EQUIPMENT, IF NEEDED, WOULD BE PROVIDED BY THE RESIDENTIAL. PT STATES HE FEELS SAFE THERE AND WILL GO BACK WHEN DONE HERE. CHOICE SIGNED. CM CALLED [facility], , VERIFIED PT IS IN HALFWAY CARE BED AND WILL RETURN AT DISCHARGE. CM FAXED UPDATE TO [facility] AT [phone]. FOR DISCHARGE, FAX DISCHARGE INFORMATION TO [facility] AT [phone]. CALL NURSE REPORT AND REQUEST TRANSPORT AT [phone]. Science Intern: Dewey Gilman DCPIA - Discharge Planning Initial Assessment Updated by ADAN: Dewey Gilman on 03/06/19 1:56 pm * Is the patient Alert and Oriented? Yes * How many steps to enter\exit or inside your home? NONE * PCP DR. PLAZA * Pharmacy [facility] * Preadmission Environment [facility] * Facility Name [facility] * ADLs Partial Dependent * Partial ADLs (Assistance needed) Ambulation Bathing Medication Management * Equipment Other * Other Equipment ALL MEDICAL EQUIPMENT PROVIDED BY FACILITY * List name and contact numbers for known caregivers / representatives who currently or will assist patient after discharge: MONIE AGRAWAL, SISTER, [facility], RESIDENTIAL, * Verbal permission to speak to the caregivers and representatives has been obtained from the patient. N/A * Community resources currently utilized None * Please name any agencies selected above. NONE * Additional services required to return to the preadmission environment? No * Can the patient safely return to the preadmission environment? Yes * Has this patient been hospitalized within the prior 30 days at any hospital? No Coverage Notice Reviewer: [id number] - Dewey Gilman Notice Issued Date-Time: 03/06/2019 16:55 Notice Type: Patient Choice Letter Notice Delivered To: Patient Relationship to Patient: Machine Feed Operator Name: Delivery Method: HAND - Hand Delivered Michelle Days: Prior Verbal Notification: Recipient Understood Notice: Yes Recipient Signature: Yes Med Rec Note Co-signed by Attending: Coverage Notice Comment: JENNIFER MAGALLANES Last DP export: 03/06/19 1:06 Patient Name: SHIRA PUENTES Page 34494 at 0917 All edits/amendments must be made on the electronic document DICTATION DATE: 03/10/19945 COMMISSIONED FIRE OFFICER: OSEI 03/10/19945 RPT#: [id number] IN DATE: STATUS: ADM IN [facility] [address] [id number] END OF REPORT
--- NOTE | 2019-03-10 10:56 | NUR ---
PATIENT IS LAYING ON HIS BACK RESTING QUIETLY AT THIS TIME. DENIES ANY NEEDS AT THIS TIME. URINE IS A SHERLY ORANGE COLOR, BUT DOES NOT APPEAR BLOODY AT THIS TIME.
[2019-03-10 12:00] VITALS: BP 125/67
[2019-03-10 14:13] LABS: HEMATOCRIT 33.4 % (42.0-54.0); HEMOGLOBIN 10.5 g/dL (13.5-17.5)
--- NOTE | 2019-03-10 15:24 | NUR ---
Nutrition Follow-up: Diet: Renal ADA PO intake: 71% avg x 5 meals Wt: 268# Last BM: 03/05 per chart Labs reviewed Meds reviewed -Continue current diet as tolerated. -Offer nutrition supplements with meals. -RD following.
[2019-03-10 16:00] VITALS: BP 134/97
[2019-03-10 16:19] LABS: HEMATOCRIT 31.6 % (42.0-54.0)
[2019-03-10] MEDS ORDERED: FLOMAX0.4 MG PO (18:09)
[2019-03-10] MEDS ORDERED: Retacrit IV (18:09)
[2019-03-10] MEDS ORDERED: PROSCAR5 MG PO (18:10)
--- NOTE | 2019-03-10 18:38 | NUR ---
OT NOTE: PT COMPLETED FACE WASHING AND HAND HYGIENE WITH SET UP. PT COMPLETED BUE AROM EXS WHILE UPRIGHT IN BED. PT REQUIRED MAX CUES FOR INCREASED PARTICIPATION. PT EXHIBITS SELF LIMITING BEHAVIORS. THANK YOU, FELY PAL
[2019-03-10 20:00] VITALS: BP 118/72
[2019-03-10 21:03] LABS: HEMATOCRIT 32.3 % (42.0-54.0); HEMOGLOBIN 10.1 g/dL (13.5-17.5)
[2019-03-11] VITALS: BP 134/86
--- NOTE | 2019-03-11 03:19 | NUR ---
I have reviewed this patient and I concur with the Shift Assessment completed by the Licensed Practical Nurse today this shift.
[2019-03-11 04:00] VITALS: BP 125/76
[2019-03-11 06:50] LABS: BASOPHILS 0.4 % (0-2); EOSINOPHILS 5.7 % (0-7); HEMATOCRIT 30.3 % (42.0-54.0); HEMOGLOBIN 9.4 g/dL (13.5-17.5); IMMATURE GRANULOCYTES 0.5 % (0-5); LYMPHOCYTES 24.3 % (15-50); MONOCYTES 9.8 % (2-11); NEUTROPHILS 59.3 % (40-80); PLATELET COUNT 184 10x3/uL (130-400); RBC 3.03 10x6/uL (4.20-6.10); RDW 16.7 % (11.5-14.5); WBC 12.9 10x3/uL (4.8-10.8)
[2019-03-11 07:09] LABS: ANION GAP 18.4 mmol/L (8-16); CALCIUM 7.8 mg/dL (8.5-10.1); CARBON DIOXIDE 19.3 mmol/L (21.0-32.0); CREATININE - SERUM 6.9 mg/dL (0.6-1.3); POTASSIUM - SERUM 3.7 mmol/L (3.5-5.1)
--- NOTE | 2019-03-11 08:06 | NUR ---
PAGE INTO [facility]ON[facility] APN REGARDING IV MEDICATION FOR PATIENT TO BE DISCHARGED ON. PATIENT WILL NOT HAVE AN IV AT [facility]. AWAITING CALL BACK TO [facility] DISCHARGE.
--- NOTE | 2019-03-11 08:25 | NUR ---
PAGE INTO [facility] APN AGAIN NO ANSWER FROM PREVIOUS PAGE.
--- NOTE | 2019-03-11 08:51 | NUR ---
YONY TO CALL BACK AND SAID TO DC THE IV RETACRIT
--- NOTE | 2019-03-11 09:47 | MORECARE ---
CASE MANAGEMENT DISCHARGE SUMMARY PATIENT: SHIRA PUENTES UNIT: [id number] ADM DATE: 03/03/19 AGE: 63 : 59 SEX: M ROOM/BED: D.2133 AUTHOR: AMBERLYDOC PHYSICIAN: REFERRING PHYSICIAN: EVA GALICIA MD DATE OF SERVICE: 03/11/19 Discharge Plan Patient Name: SHIRA PUENTES Facility: [facility]:[place] : 1955 Planned Disposition: Nursing Facility [facility] Cert Anticipated Discharge Date: 03/11/19 Discharge Date: Expected LOS: 8 Initial Reviewer: [id number] Initial Review Date: 03/05/2019 Generated: 03/11/19 10:47 am Comments DCP- Discharge Planning Updated by [id number]: Dewey Gilman on 03/10/19 8:[address] Patient Name: SHIAR PUENTES Encounter No: [id number] : 1955 Primary Insurance: MEDICAID [place] Anticipated DC Date: Planned Disposition: Nursing Facility [facility] [facility] Cert External Planned Provider: [facility], BROOM MAKER CARE MEDICAID BED DCP follow-up note: CM FAXED REFERRAL UPDATE TO [facility] AT [phone]. FOR DISCHARGE, FAX DISCHARGE INFORMATION TO [facility] AT [phone]. CALL NURSE REPORT AND REQUEST TRANSPORT AT [phone]. Diagnostics Tech: Dewey Gilman DCP- Discharge Planning Updated by [id number]: Dewey Gilman on 03/06/19 12:[address] Patient Name: SHIRA PUENTES Admission Status: ER Accout number: [id number] Admission Date: 03-03-2019 : 1955 Admission Diagnosis: Attending: EVA GALICIA Current LOS: 3 Anticipated DC Date: Planned Disposition: Nursing Facility [facility] Cert Primary Insurance: MED[place]ID [place] Discharge Planning Comments: CM MET WITH PT IN ROOM TO DISCUSS DISCHARGE PLANNING AND NEEDS. PT REPORTS LIVING AT [facility] IN THE GROUP HOME. PT HAS A CANE ; ALL OTHER MEDICAL EQUIPMENT, IF NEEDED, WOULD BE PROVIDED BY THE GROUP HOME. PT STATES HE FEELS SAFE THERE AND WILL GO BACK WHEN DONE HERE. CHOICE SIGNED. CM CALLED [facility], , VERIFIED PT IS IN PENITENTIARY CARE BED AND WILL RETURN AT DISCHARGE. CM FAXED UPDATE TO [facility] AT [phone]. FOR DISCHARGE, FAX DISCHARGE INFORMATION TO [facility] AT [phone]. CALL NURSE REPORT AND REQUEST TRANSPORT AT [phone]. Diagnostics Tech: Dewey Gilman DCPIA - Discharge Planning Initial Assessment Updated by ADAN: Dewey Gilman on 03/06/19 1:56 pm * Is the patient Alert and Oriented? Yes * How many steps to enter\exit or inside your home? NONE * PCP DR. PLAZA * Pharmacy [facility] * Preadmission Environment [facility] * Facility Name [facility] * ADLs Partial Dependent * Partial ADLs (Assistance needed) Ambulation Bathing Medication Management * Equipment Other * Other Equipment ALL MEDICAL EQUIPMENT PROVIDED BY FACILITY * List name and contact numbers for known caregivers / representatives who currently or will assist patient after discharge: MONIE AGRAWAL, SISTER, [facility], GROUP HOME, * Verbal permission to speak to the caregivers and representatives has been obtained from the patient. N/A * Community resources currently utilized None * Please name any agencies selected above. NONE * Additional services required to return to the preadmission environment? No * Can the patient safely return to the preadmission environment? Yes * Has this patient been hospitalized within the prior 30 days at any hospital? No Coverage Notice Reviewer: [id number] - Dewey Gilman Notice Issued Date-Time: 03/06/2019 16:55 Notice Type: Patient Choice Letter Notice Delivered To: Patient Relationship to Patient: Auto Garage Mechanic Name: Delivery Method: HAND - Hand Delivered Michelle Days: Prior Verbal Notification: Recipient Understood Notice: Yes Recipient Signature: Yes Med Rec Note Co-signed by Attending: Coverage Notice Comment: JENNIFER MAGALLANES Last DP export: 03/10/19 8:47 Patient Name: SHIRA PUENTES Page 67685 at 0947 All edits/amendments must be made on the electronic document DICTATION DATE: 03/11/19946 CUPOLA OPERATOR: OSEI 03/11/19946 RPT#: [id number] DC DATE: STATUS: ADM IN [facility] [address] [place] [address] END OF REPORT
[2019-03-11 09:55] VITALS: BP 111/66
--- NOTE | 2019-03-11 10:01 | MORECARE ---
CASE MANAGEMENT DISCHARGE SUMMARY PATIENT: SHIRA PUENTES UNIT: [id number] ADM DATE: 03/03/19 AGE: 63 : 59 SEX: M ROOM/BED: D.2133 AUTHOR: MEGAN GAMING PHYSICIAN: REFERRING PHYSICIAN: EVA GALICIA MD DATE OF SERVICE: 03/11/19 Discharge Plan Patient Name: SHIRA PUENTES Facility: [facility]:[place] : 1955 Planned Disposition: Nursing Facility [facility] Cert Anticipated Discharge Date: 03/11/19 Discharge Date: Expected LOS: 8 Initial Reviewer: [id number] Initial Review Date: 03/05/2019 Generated: 03/11/19 11:01 am Comments DCP- Discharge Planning Updated by [email or web address]: Dewey Gilman on 03/11/19 9:[address] Patient Name: SHIRA PUENTES Encounter No: [id number] : 1955 Primary Insurance: MEDICAID [place] Anticipated DC Date: 03-11-2019 Planned Disposition: Nursing Facility [facility] Cert External Planned Provider: [facility], USP CARE MEDICAID BED DCP follow-up note: CRYS CALLED [facility], , NOTIFIED [place] PAGE OF DISCHARGE. [place] ASKED IF PT CAN STAY UNTIL TOMORROW ALL OF THEIR TRANPSORTATION IS BOOKED ALREADY FOR TODAY AND THEY RECEIVED NO ADVANCE NOTICE OF DISCHARGE. [facility] INFORMED [place] THAT [facility] DID CALL YESTERDAY WITH ANTICIPATED DISCHARGE FOR YESTERDAY AND FAXED UPDATE YESTERDAY. [place] WILL CALL WITH COMPUTER DRAFTER TIME. CM FAXED DISCHARGE INFORMATION TO [facility] AT [phone]. [place] CALLED BACK AT ABOUT 0950, THEY ARE ON THE WAY FROM [place] TO COMPUTER DRAFTER PT. NOTIFIED CURB SETTER HELPER NURSE. CALL NURSE REPORT AT [phone]. TRANSPORT SHOULD ARRIVE BETWEEN 1100 AND 1200 TO COMPUTER DRAFTER PATIENT. Roll Tube Setter: Dewey Gilman DCP- Discharge Planning Updated by [id number]: Dewey Gilman on 03/10/19 8:[address] Patient Name: SHIRA PUENTES Encounter No: [id number] : 1955 Primary Insurance: MEDICAID [place] Anticipated DC Date: Planned Disposition: Nursing Facility [facility] Cert External Planned Provider: [facility], USP CARE MEDICAID BED DCP follow-up note: CM FAXED REFERRAL UPDATE TO [facility] AT [phone]. FOR DISCHARGE, FAX DISCHARGE INFORMATION TO [facility] AT [phone]. CALL NURSE REPORT AND REQUEST TRANSPORT AT [phone]. Roll Tube Setter: Dewey Gilman DCP- Discharge Planning Updated by [id number]: Dewey Gilman on 03/06/19 12:[address] Patient Name: SHIRA PUENTES Admission Status: ER Accout number: [id number] Admission Date: 03-03-2019 : 1955 Admission Diagnosis: Attending: EVA GALICIA Current LOS: 3 Anticipated DC Date: Planned Disposition: Nursing Facility [facility] Cert Primary Insurance: MEDICAID [place] Discharge Planning Comments: CM MET WITH PT IN ROOM TO DISCUSS DISCHARGE PLANNING AND NEEDS. PT REPORTS LIVING AT [facility] IN THE [facility]UST[facility]. PT HAS A CANE ; ALL OTHER MEDICAL EQUIPMENT, IF NEEDED, WOULD BE PROVIDED BY THE CUSTODIAL. PT STATES HE FEELS SAFE THERE AND WILL GO BACK WHEN DONE HERE. CHOICE SIGNED. CM CALLED [facility], , VERIFIED PT IS IN SORTING GRAPPLE OPERATOR CARE BED AND WILL RETURN AT DISCHARGE. CM FAXED UPDATE TO [facility] AT [phone]. FOR DISCHARGE, FAX DISCHARGE INFORMATION TO [facility] AT [phone]. CALL NURSE REPORT AND REQUEST TRANSPORT AT [phone]. Roll Tube Setter: Dewey Gilman DCPIA - Discharge Planning Initial Assessment Updated by [id number]: Dewey Gilman on 03/06/19 1:56 pm * Is the patient Alert and Oriented? Yes * How many steps to enter\exit or inside your home? NONE * PCP DR. PLAZA * Pharmacy [facility] * Preadmission Environment [facility] * Facility Name [facility] * ADLs Partial Dependent * Partial ADLs (Assistance needed) Ambulation Bathing Medication Management * Equipment Other * Other Equipment ALL MEDICAL EQUIPMENT PROVIDED BY FACILITY * List name and contact numbers for known caregivers / representatives who currently or will assist patient after discharge: MONIE AGRAWAL, SISTER, [facility], * Verbal permission to speak to the caregivers and representatives has been obtained from the patient. N/A * Community resources currently utilized None * Please name any agencies selected above. NONE * Additional services required to return to the preadmission environment? No * Can the patient safely return to the preadmission environment? Yes * Has this patient been hospitalized within the prior 30 days at any hospital? No Coverage Notice Reviewer: [id number] Danna Gilman Notice Issued Date-Time: 03/06/2019 16:55 Notice Type: Patient Choice Letter Notice Delivered To: Patient Relationship to Patient: Front Window Cashier Name: Delivery Method: HAND - Hand Delivered Michelle Days: Prior Verbal Notification: Recipient Understood Notice: Yes Recipient Signature: Yes Med Rec Note Co-signed by Attending: Coverage Notice Comment: JENNIFER WOODY export: 03/11/19 8:47 Patient Name: SHIRA PUENTES Page [id number] at 1001 All edits/amendments must be made on the electronic document DICTATION DATE: 03/11/19 1001 EXECUTIVE SEARCH CONSULTANT: OSEI 03/11/19 1001 RPT#: [id number] DC DATE: STATUS: ADM IN [facility] [address] [place] [address] END OF REPORT
--- NOTE | 2019-03-11 10:57 | NUR ---
PATIENT IS PREPARED FOR DIACHARGE. REMOVING IV WITH CATHETER INTACT FROM RIGHT HAND. ALL PATIENT BELONGINGS ARE BEING PACKED UP AND TRANSPORTED BACK TO THE RETIREMENT IN [facility]. REPORT CALLED TO JENNIFER MANHEIM. PATIENT WAS UNABLE TO SIGN HIS DISCHARGE PAPERWORK AT THIS TIME, HE UNDERSTOOD, BUT HE CLOSED HIS EYES AND TURNED HIS HEAD AWAY. PATIENT IS GOING HOME TO THE RETIREMENT WITH HIS JONES IN PLACE. HE DENIES ANY NEEDS AT THIS TIME.
[2019-03-11 12:56] LABS: HEMATOCRIT 34.6 % (42.0-54.0); HEMOGLOBIN 10.9 g/dL (13.5-17.5)
--- NOTE | 2019-03-11 13:25 | NUR ---
PATIENT HAS BEEN DISCARGED. ALL PATIENT BELONGINGS HAVE BEEN REMOVED FROM THE ROOM.
--- NOTE | 2019-03-11 15:35 | NUR ---
OT NOTE: PT COMPLETED BUE AROM EXS. PT COMPLETED FACE WASHING WITH SET UP. THANK YOU, FELY PAL
== END 2019-03-11 13:58 | DRG 683 ==
LOC: D.ER 11:35 → D.M2 16:41
PROVIDERS: Emergency Medicine; Internal Medicine Nephrology; ADMIT Internal Medicine Nephrology; ATTEND Internal Medicine Nephrology
DX: N17.9 Acute kidney failure, unspecified (principal); I13.2 Hypertensive heart and chronic kidney disease with heart failure and with stage 5 chronic kidney disease, or end stage renal disease; I48.20 Chronic atrial fibrillation, unspecified; N39.0 Urinary tract infection, site not specified; N18.5 Chronic kidney disease, stage 5; N13.30 Unspecified hydronephrosis; E86.0 Dehydration; D53.9 Nutritional anemia, unspecified; E03.9 Hypothyroidism, unspecified; K21.9 Gastro-esophageal reflux disease without esophagitis; E11.22 Type 2 diabetes mellitus with diabetic chronic kidney disease; I50.9 Heart failure, unspecified; N40.0 Benign prostatic hyperplasia without lower urinary tract symptoms; A59.9 Trichomoniasis, unspecified; D63.1 Anemia in chronic kidney disease; Z86.718 Personal history of other venous thrombosis and embolism; Z86.73 Personal history of transient ischemic attack (TIA), and cerebral infarction without residual deficits